=== PATIENT | female | born 1995 | race Caucasian/White ===

== ENCOUNTER → 2019-07-05 08:40 | Outpatient (BNVA) | payer OTHER, SELFPAY | PROVIDERS: Family Provider Nurse Practitioner; PCP Nurse Practitioner; Visit Provider Psychiatry & Neurology Psychiatry | DX: F41.1 Generalized anxiety disorder (principal); F43.12 Post-traumatic stress disorder, chronic; F33.0 Major depressive disorder, recurrent, mild | CPT/HCPCS: 99204 ==

== ENCOUNTER → 2019-08-09 13:46 | Outpatient (BNVA) | payer OTHER, SELFPAY | PROVIDERS: Family Provider Nurse Practitioner; PCP Nurse Practitioner; Visit Provider Psychiatry & Neurology Psychiatry | DX: F33.0 Major depressive disorder, recurrent, mild (principal); F43.12 Post-traumatic stress disorder, chronic; F41.1 Generalized anxiety disorder | CPT/HCPCS: 99213 ==

== ENCOUNTER → 2019-09-02 09:20 | Outpatient (BNVA) | payer OTHER, MEDICAID, SELFPAY | PROVIDERS: Family Provider Nurse Practitioner; PCP Nurse Practitioner; Visit Provider Specialist | DX: M79.7 Fibromyalgia (principal) | CPT/HCPCS: 20552 ==

== ENCOUNTER 2019-09-13 22:03 | Emergency (ER) | payer OTHER, MEDICAID, SELFPAY ==
[2019-09-13 22:09] VITALS: BP 117/78; PULSE 65; RESP 17; TEMP 36.3; O2SAT 99; BMI 26.7
--- NOTE | 2019-09-13 22:37 | W.ED.NAVMDI ---
HPI - Nausea/Vomiting/Diarrhea General: Chief complaint: Nausea/Vomiting/Diarrhea Stated complaint: 8 weeks preg/n/v Time Seen by Provider: 09/13/19 22:19 History of Present Illness: MD elicited complaint: nausea and vomiting Onset (ago): day(s) (2) Description of vomiting: food contents and watery Associated nausea: Yes Associated abdominal pain: No Location of pain: None Severity: similar to previous episodes Quality: cramping Relieving factors: none Associated symtoms: Reports nausea; Denies anxiety, change in vision, chest pain, dizziness, dysuria, headache(s) or palpitations Review of Systems Const: Denies: fever or chills Eyes: Denies: change in vision or blurry vision ENMT: Denies: painful swallowing, swelling of lips/tongue, post nasal drip or facial/sinus pain Card: Denies: chest pain, palpitations or edema Resp: Denies: shortness of breath, productive cough, non-productive cough or wheezing GI: Reports: nausea : Denies: painful urination, urinary frequency, urinary urgency or blood in urine Musc: Denies: neck pain, back pain, redness or joint warmth Skin/Breast: Denies: rash, itching or redness Neuro: Denies: headache, dizziness or vertigo Psych: Denies: anxiety PFSH ED PFSH: Social History Smoking and tobacco status: never smoked History of recent travel: No Female Reproductive History: Date of last menstrual period: 07/20/19 Physical Exam Const: GENERAL APPEARANCE: well developed ORIENTATION/CONSCIOUSNESS: Yes oriented to person, Yes oriented to place and Yes oriented to time HENMT: COMMON NORMALS: normocephalic, external ears normal and external nose normal HEAD & SCALP: normocephalic FACE & SINUS: normal facial exam NOSE: external nose normal and no nasal discharge EXTERNAL EAR: Yes external ears normal Eye: COMMON NORMALS: PERRL, EOMs intact bilaterally and conjunctivae normal EYELID: eyelids normal CONJUNCTIVA: Yes conjunctivae normal PUPIL: Yes PERRL Neck/C-Spine: COMMON NORMALS: full ROM GENERAL: No tracheal deviation Chest: COMMONS NORMALS: inspection of chest normal CHEST: No tenderness Resp: COMMON NORMALS: clear to auscultation bilaterally EFFORT & INSPECTION: No tachypneic, No respiratory distress, No retractions, No uses accessory muscles and No tracheal deviation AUSCULTATION: clear to auscultation bilaterally, no rhonchi, no wheezes and lung sounds not diminished Cardio: COMMON NORMALS: regular rate and regular rhythm RATE: regular rate RHYTHM: regular rhythm HEART SOUNDS: no murmurs PERIPHERAL PULSES: radial pulses present GI: INSPECTION: No abdominal distension AUSCULTATION: No hyperactive bowel sounds and No hypoactive bowel sounds PALPATION: No guarding and No rigid PERCUSSION: no dullness to percussion and no tympanic to percussion : COMMON NORMALS: Yes no CVA tenderness BLADDER/KIDNEY EXAM: Yes no CVA tenderness Back/Pelvis: COMMON NORMALS: no CVA tenderness Neuro: SENSORIUM/ORIENTATION: Yes oriented to person, Yes oriented to place and Yes oriented to time Psych: COMMON NORMALS: mental status grossly normal Skin: COMMON NORMALS: no rashes or lesions noted GENERAL SKIN EXAM: no rashes or lesions noted Course Vital Signs: Vital signs: Vital Signs Temperature 97.3 F L 09/13/19 22:09 Pulse Rate 66 09/14/19 00:19 Respiratory Rate 14 09/14/19 00:19 Blood Pressure 116/68 09/14/19 00:19 Pulse Oximetry 99 09/13/19 22:09 MDM - Nausea/Vomiting/Diarrhea MDM Narrative: Medical decision making narrative: 24-year-old female, who states that she is 8 weeks , complains of significant vomiting. No diarrhea, no fever, no real belly pain. She has had some mild cramping, no discharge or bleeding. She had hyperemesis with 2 prior pregnancies. She is a . She had promethazine at home, but without improvement. Zofran worked well for her here. I believe the risk is minimal. Her serum quant is appropriate for her dates. On bedside ultrasound, she has an intrauterine with good heart rate in the 160s. Fetus measures 7 weeks 4 days. Lab Data: Labs: Lab Results 09/13/19 09/13/19 09/14/19 Range/Units 22:42 22:42 00:33 WBC 13.2 H (4.0-10.0) 10^3/ uL RBC 5.18 (4.1-5.3) 10^6/u L Hgb 14.7 (11.5-15.3) g/dL Hct 44.8 (37.0-47.0) % MCV 86.5 (81-99) fL MCH 28.4 (28.0-34.0) pg MCHC 32.8 (30.0-36.0) g/dL RDW 12.3 (12.1-15.1) % Plt Count 252 (130-400) 10^3/c mm MPV 9.9 (7.4-10.4) fL Neut % (Auto) 82.5 % Lymph % (Auto) 12.1 % Wilkes % (Auto) 4.7 % Eos % (Auto) 0.2 % Baso % (Auto) 0.2 % Neut # (Auto) 10.9 H (1.8-7.7) 10^3/u L Lymph # (Auto) 1.6 (0.8-4.8) 10^3/u L Wilkes # (Auto) 0.6 (0.2-0.9) 10^3/u L Eos # (Auto) 0.0 (0.0-0.8) 10^3/u L Baso # (Auto) 0.0 (0.0-0.1) 10^3/u L Nucleated RBC % (a uto) 0 % Nucleated RBCs # 0.0 /100WBC Sodium 140 (136-145) mmol/L Potassium 3.7 (3.5-5.1) mmol/L Chloride 104 (98-107) mmol/L Carbon Dioxide 22 (22-29) mmol/L Anion Gap 17.7 (5-19) BUN 6 (6-20) mg/dL Creatinine 0.7 (0.5-0.9) mg/dL GFR Calculation 101.1 (90-130) mL/min Glucose 97 (65-115) mg/dL Calculated Osmolal ity 286 (285-295) mOsm/k g Calcium 10.2 (8.5-10.5) mg/dL Total Bilirubin 0.8 (0.15-1.2) mg/dL AST 31 (0-32) U/L ALT 37 H (0-33) U/L Alkaline Phosphata se 48 (35-105) IU/L Total Protein 8.2 (6.6-8.7) g/dL Albumin 4.9 (3.5-5.2) g/dL Globulin 3.3 (1.3-4.6) g/dL Ser , [place] i-Qnt 352712.00 mIU/mL Urine Color Dark yellow (Yellow) Urine Appearance Sl cloudy A (CLEAR) Urine pH 5 (5-7) Ur Specific Gravit y 1.025 (1.005-1.030) Urine Protein Trace (Negative) Urine Glucose (UA) Norm (Normal) Urine Ketones 2+ H (Negative) Urine Blood Trace H (Negative) Urine Nitrate Negative (Negative) Urine Bilirubin 1+ H (NEGATIVE) Urine Urobilinogen 4 H (Negative) mg/dL Ur Leukocyte Page ase Negative (Negative) Urine RBC 5-10 H (0-2) /hpf Urine WBC 0-4 H (0-5) /hpf Ur Squamous Epith Cells 10-15 H (0-5) Urine Bacteria 1+ H (NONE) Urine Mucus 3+ Discharge Plan Discharge Patient Disposition: Home, Self-Care Clinical Impression: Hyperemesis gravidarum Condition: Stable Prescriptions: New Zofran 4 mg tablet 4 mg PO Q6H PRN (Reason: nausea and vomiting) Qty: 14 RF: 0 No Action buspirone 10 mg tablet 10 mg PO TID Qty: 90 RF: 2 hydroxyzine HCl 25 mg tablet 25 mg PO TID PRN (Reason: anxiety/insomnia) Qty: 90 RF: 2 Discharge Orders: Discharge Order (Routine); Ordered 09/14/19 Ordered By: Edi Story Referrals: Leanne Jerry, ASSISTANT MANAGER-C [Family Provider] - You Grimaldo MD [Primary Care Provider] - 4-7 days Discharge Diet: Advance as tolerated Discharge Activity: Increase activity as tolerated Patient Instructions: Hyperemesis Gravidarum (ED) Activity Restrictions/Additional Instructions: Return for continued vomiting liquids despite treatment. Take the prescribed medication every 6 hours scheduled for the first 24 hours, then only as needed. Use the promethazine preferentially over the Zofran. Return also for fever, vaginal bleeding, belly pain, other concerning symptoms. Coding Level of Care Code ED Grain Oilseed Or Pasture Grower for Chg Fwd Exam Comprehensive
[2019-09-13] MEDS: sodium chloride 0.9% 1,000 ML 999 ML IV (23:13)
[2019-09-13] MEDS: ondansetron 2 mg/ML SDV 2 mL 4 MG IVP (23:13)
[2019-09-13] MEDS: metoclopramide 5 mg/mL SDV 2 mL 10 MG IVP (23:13)
[2019-09-13 23:14] LABS: Basophils % 0.2 %; Eosinophils % 0.2 %; Hematocrit 44.8 % (37.0-47.0); Hemoglobin 14.7 g/dL (11.5-15.3); Lymphocytes # 1.6 10^3/uL (0.8-4.8); Lymphocytes % 12.1 %; Mean Corpuscular HGB Conc 32.8 g/dL (30.0-36.0); Mean Corpuscular Hemoglobin 28.4 pg (28.0-34.0); Mean Corpuscular Volume 86.5 fL (81-99); Mean Platelet Volume 9.9 fL (7.4-10.4); Monocytes # 0.6 10^3/uL (0.2-0.9); Monocytes % 4.7 %; Neutrophils # 10.9 10^3/uL (1.8-7.7); Neutrophils % 82.5 %; Nucleated Red Blood Cells % 0 %; Platelet Count 252 10^3/cmm (130-400); Red Blood Count 5.18 10^6/uL (4.1-5.3); Red Cell Distribution Width 12.3 % (12.1-15.1); White Blood Count 13.2 10^3/uL (4.0-10.0)
[2019-09-13 23:46] LABS: Alanine Aminotransferase 37 U/L (0-33); Albumin Level 4.9 g/dL (3.5-5.2); Alkaline Phosphatase 48 IU/L (35-105); Anion Gap 17.7 (5-19); Aspartate Amino Transferase 31 U/L (0-32); Blood Urea Nitrogen 6 mg/dL (6-20); Calcium 10.2 mg/dL (8.5-10.5); Carbon Dioxide 22 mmol/L (22-29); Chloride 104 mmol/L (98-107); Globulin 3.3 g/dL (1.3-4.6); Glomerular Filtration Rate 101.1 mL/min (90-130); Glucose 97 mg/dL (65-115); Osmolality Calculated 286 mOsm/kg (285-295); Potassium 3.7 mmol/L (3.5-5.1); Sodium 140 mmol/L (136-145); Total Bilirubin 0.8 mg/dL (0.15-1.2); Total Protein 8.2 g/dL (6.6-8.7)
[2019-09-14 00:19] VITALS: BP 116/68; PULSE 66; RESP 14
[2019-09-14] MEDS: sodium chloride 0.9% 1,000 ML 999 ML IV (00:58)
[2019-09-14 01:40] LABS: Glucose Urine UA Norm (Normal); Ketones Urine 2+ (Negative); Nitrate Urine Negative (Negative); Protein Urine Trace (Negative); Specific Gravity, Urine 1.025 (1.005-1.030); Urine Color Dark Yellow (Yellow); pH Urine 5 (5-7)
[2019-09-14 01:41] LABS: Add Urine Culture? No; Add Urine Microscopic? YES; Bacteria Urine 1+; Bilirubin Urine 1+ (NEGATIVE); Blood Urine Trace (Negative); Leukocyte Esterase Urine Negative (Negative); Mucus Urine 3+; Urobilinogen Urine 4 mg/dL (Negative); WBC Urine 0-4 /hpf (0-5)
[2019-09-14 02:08] VITALS: BP 122/70; PULSE 78; RESP 16; O2SAT 99
[2019-09-14 02:13] LABS: Lipase 25 U/L (13-60)
== END 2019-09-14 02:11 | disposition home or self-care (01) ==
PROVIDERS: Emergency Provider Emergency Medicine; Family Provider Nurse Practitioner; PCP Family Medicine
DX: O21.0 Mild hyperemesis gravidarum (principal); Z3A.01 Less than 8 weeks gestation of pregnancy
CPT/HCPCS: 12345; 80053; 81001; 83690; 84702; 85025; 96360; 96361; 96374; 96375; 99283; 99284; J2405; J2765; J7030

== ENCOUNTER → 2019-10-18 08:53 | Outpatient (BNVA) | payer OTHER, SELFPAY | PROVIDERS: Family Provider Nurse Practitioner; PCP Family Medicine; Visit Provider Psychiatry & Neurology Psychiatry | DX: F33.0 Major depressive disorder, recurrent, mild (principal); F43.12 Post-traumatic stress disorder, chronic; F41.1 Generalized anxiety disorder | CPT/HCPCS: 99213 ==

== ENCOUNTER 2020-04-06 20:14 | Outpatient (CLI) | payer OTHER, MEDICAID, SELFPAY ==
[2020-04-06 20:19] VITALS: BP 119/67; PULSE 66; RESP 18; TEMP 36.3
[2020-04-06 20:29] VITALS: BP 119/67; PULSE 66
[2020-04-06 22:42] VITALS: RESP 18; TEMP 36.7
[2020-04-06 22:43] VITALS: BP 106/60; PULSE 62
[2020-04-07 00:06] VITALS: BP 106/61; PULSE 61; RESP 18; TEMP 36.5
== END 2020-04-07 00:12 | disposition home or self-care (01) ==
LOC: OPOB 20:15 → OBGYN 20:16
PROVIDERS: Family Provider Nurse Practitioner; PCP Family Medicine; Visit Provider Family Medicine
DX: O26.899 Other specified pregnancy related conditions, unspecified trimester (principal); Z3A.00 Weeks of gestation of pregnancy not specified; R10.9 Unspecified abdominal pain
CPT/HCPCS: 59025; 99211

== ENCOUNTER 2020-04-17 21:15 | Inpatient (IN) | payer OTHER, MEDICAID, SELFPAY ==
[2020-04-17] VITALS (21 sets, daily range): BP systolic 0–130; BP diastolic 0–73; PULSE 53–78; TEMP 36.6; O2SAT 98–99; BMI 30.9
[2020-04-17 22:55] LABS: Basophils % 0.3 %; Eosinophils # 0.1 10^3/uL (0.0-0.8); Eosinophils % 0.5 %; Hematocrit 33.7 % (37.0-47.0); Hemoglobin 11.1 g/dL (11.5-15.3); Lymphocytes # 2.4 10^3/uL (0.8-4.8); Mean Corpuscular HGB Conc 32.9 g/dL (30.0-36.0); Mean Corpuscular Volume 84.9 fL (81-99); Mean Platelet Volume 11.2 fL (7.4-10.4); Monocytes % 6.6 %; Neutrophils # 11.54 10^3/uL (1.8-7.7); Neutrophils % 76.1 %; Nucleated Red Blood Cells % 0 %; Platelet Count 204 10^3/cmm (130-400); Red Blood Count 3.97 10^6/uL (4.1-5.3); Red Cell Distribution Width 13.1 % (12.1-15.1); White Blood Count 15.2 10^3/uL (4.0-10.0)
--- NOTE | 2020-04-17 23:00 | P.ANESASSM_ITS ---
Pre-Anesthetic Assessment Pre-Anesthetic Assessment: Height/Weight: Height 1.73 m Pulse BP Pulse Ox 64 110/57 99 04/17/20 23:18 04/17/20 23:18 04/17/20 23:18 Preop Diagnosis: IUP Proposed Procedure: epdiural Familial anesthetic complications: None Last intake: NPO >8 8hrs Social: Social History: No alcohol and No tobacco Exam: Pre-Anes Outpt Exam: alert, oriented x 3, clear to auscultation bilaterally and regular rate & rhythm Airway: Cervical ROM: WNL MP: 2 Dentition: Full Anesthetic Plan: ASA status: 2 Anesthesia: Regional (specify below) (epidural) Risk of > 500 ml blood loss (7ml/kg in children): Yes, adequate IV access and fluids planned PFSH Anesthesia PFSH: Medical History (Updated 09/22/19 @ 00:00 by ) Recent childbirth 3 natural births Surgical History History of cholecystectomy Family History Grandmother Breast cancer Paternal grandmother Ovarian cancer Paternal grandmother Mother Diabetes Hypertension Family history of thyroid problem Grandfather Heart disease Paternal grandfather Maternal grandfather Other Parkinson disease Social History Smoking and tobacco status: never smoked Alcohol intake: never History of recent travel: No Female Reproductive History: Date of last menstrual period: 07/20/19 Data Anesthesia CBC & Chem 7: 04/17/20 21:45 Other Labs: Laboratory Results - last 48 hr 04/17/20 21:45 WBC 15.2 H RBC 3.97 L Hgb 11.1 L Hct 33.7 L MCV 84.9 MCH 28.0 MCHC 32.9 RDW 13.1 Plt Count 204 MPV 11.2 H Neut % (Auto) 76.1 Lymph % (Auto) 16.0 Frederick % (Auto) 6.6 Eos % (Auto) 0.5 Baso % (Auto) 0.3 Neut # (Auto) 11.54 H Lymph # (Auto) 2.4 Frederick # (Auto) 1.0 H Eos # (Auto) 0.1 Baso # (Auto) 0.0 Nucleated RBC % (auto) 0 Nucleated RBCs # 0.0 Cardiac Studies: No Data to Display
--- NOTE | 2020-04-17 23:22 | ANES.PROC ---
Anesthesia Procedures Procedure/Date: 04/17/20 Epidural: Time Out Performed: Yes Consents Signed: Procedure Consent, NPO Consent and No Consent Needed Lumbar Level: L3-L4 Epidural position: laying on side Epidural procedure: sterile prep of area, 1% lidocaine to numb the area, 18 g needle, negative for paresthesia passed, neg for paresthesia, test dose given, 1.5% xylocaine 1:200k epi (3), 0.2% Ropivacaine bolus ml, placed PCEA, no systemic response, sterile dressing applied, L.U.D. no apparent complications and 0.2% Ropiavacaine @ mls/hr (13) Additional Comments: MARCIA 7 cm threaded to 12 cm
[2020-04-18] VITALS (32 sets, daily range): BP systolic 0–120; BP diastolic 0–77; PULSE 50–76; RESP 14–16; TEMP 36.6–37; O2SAT 97–99
--- NOTE | 2020-04-18 02:38 | P.PCNOB_ITS ---
Delivery Note: Date of delivery: April 18, 2020 Pre-delivery diagnoses: 24-year-old 5 presenting in active labor Post-delivery diagnoses: Status post spontaneous vaginal delivery Op report anesthesia: Epidural Delivering Physician: You Grimaldo Estimated blood loss (mL): 150 Delivery: DELIVERY: The patient progressed to complete without difficulty. She delivered a female with a weight of 7 pounds 11 ounces with Apgars of 9, 9. The baby was delivered from the TATYANA position. The baby's mouth and nose were suctioned at the site of the perineum. The baby was then completely delivered and placed on the mother's abdomen. The cord was then clamped and cut. There was no nuchal cord. There was no meconium. The placenta and 3 vessel cord were delivered intact shortly thereafter. The perineum and vaginal vault were carefully examined. No lacerations were noted. Both the mother and the baby were in stable condition. Post-Delivery Status: Good A&P Assessment and plan (1) 39 weeks gestation of : Anticipate routine care Status: Acute (2) Spontaneous vaginal delivery: Status: Acute Coding Level of Care Code Acute Operating Room Specialist for Chg Fwd Diagnoses 39 weeks gestation of Z3A.39 Spontaneous vaginal delivery O80
[2020-04-18] MEDS: lanolin oint 7 gm 1 APPLIC TOPICAL (05:56)
[2020-04-18] MEDS: benzocaine-menthol 78 gm Canister 1 SPRAY TOPICAL (05:56)
[2020-04-18] MEDS: oxytocin 30 UNIT/500 ML BAG 600 UNIT IV (06:03)
[2020-04-18] MEDS: docusate sodium 100 mg Capsule PO ×2 (08:11→17:44)
[2020-04-18] MEDS: prenatal vitamin Capsule 1 CAP PO (08:11)
[2020-04-18] MEDS: ibuprofen 800 mg tablet PO ×3 (08:11→20:11)
[2020-04-18 14:10] LABS: Hematocrit 31.4 % (37.0-47.0); Hemoglobin 10.1 g/dL (11.5-15.3); Mean Corpuscular HGB Conc 32.2 g/dL (30.0-36.0); Mean Corpuscular Hemoglobin 27.7 pg (28.0-34.0); Mean Corpuscular Volume 86.3 fL (81-99); Mean Platelet Volume 11.1 fL (7.4-10.4); Platelet Count 176 10^3/cmm (130-400); Red Blood Count 3.64 10^6/uL (4.1-5.3); Red Cell Distribution Width 13.2 % (12.1-15.1); White Blood Count 16.2 10^3/uL (4.0-10.0)
[2020-04-19 04:26] VITALS: BP 92/52; PULSE 70; RESP 16; O2SAT 98
[2020-04-19] MEDS: prenatal vitamin Capsule 1 CAP PO (08:10)
[2020-04-19] MEDS: ibuprofen 800 mg tablet PO (08:10)
[2020-04-19] MEDS: docusate sodium 100 mg Capsule PO (08:10)
--- NOTE | 2020-04-19 09:15 | PM.OBGYDC ---
Discharge Providers CANE FLUME WATCHMAN Date of Admission: 04/17/20 21:15 Date of Discharge: 04/19/20 Attending Provider at Admission: You Grimaldo MD Attending Provider at Discharge: You Grimaldo MD Primary Care Provider: You Grimaldo MD Diagnoses at Discharge Discharge Diagnosis (1) 39 weeks gestation of : Status: Acute (2) Spontaneous vaginal delivery: Status: Acute Reason for Visit Reason for Visit: contractions Hospital Course Hospital Course: The patient presented to the hospital in active labor. An amniotomy was performed. An epidural was received. She had unremarkable vaginal delivery. Her course was notable for having some initial issues with bleeding that resolved within a couple of hours. She has breast-fed well. Her bleeding has been within normal limits. Her pain is a well controlled. There have been no concerns. Information Peripartum Data: Delivery Method: Vaginal Physical Exam Narrative: EXAM NARRATIVE: The patient is alert. She appears comfortable. Her heart has a regular rate and rhythm with no murmurs appreciated. Lungs are clear to auscultation bilaterally. Her fundus is firm and below the umbilicus. Discharge Data Data Completed and Pending: Labs from last 24 hours 04/18/20 14:00 WBC 16.2 H RBC 3.64 L Hgb 10.1 L Hct 31.4 L MCV 86.3 MCH 27.7 L MCHC 32.2 RDW 13.2 Plt Count 176 MPV 11.1 H Vitals: Last Vital Signs Temp 98.6 F 04/18/20 22:00 Pulse 70 04/19/20 04:26 Resp 16 04/19/20 04:26 BP 92/52 04/19/20 04:26 Pulse Ox 98 04/19/20 04:26 Discharge Plan Discharge Patient Disposition: Home Condition: Stable Prescriptions: New ibuprofen 800 mg Tablet 800 mg PO TID Qty: 30 RF: 0 Continued Classic 28 mg iron- 800 mcg tablet 1 tab PO DAILY RF: 0 Discharge Orders: Discharge Order (Routine); Ordered 04/19/20 Ordered By: You Grimaldo Referrals: You Grimaldo MD [Primary Care Provider] - 6 Weeks Discharge Diet: Usual diet Discharge Activity: Limit activity as instructed Discharge Attestations CANE FLUME WATCHMAN Time Spent in Discharge Care*: less than 30 min Coding Level of Care Code Acute Global Expansion Sales Director for Chg Fwd Diagnoses 39 weeks gestation of Z3A.39 Spontaneous vaginal delivery O80
[2020-04-19] MEDS: measles,mumps,rubella pf Vial (w/diluent) 0.5 ML SUBCUT (10:02)
[2020-04-19 10:15] VITALS: BP 109/67; PULSE 70; RESP 16; TEMP 36.7; O2SAT 98
== END 2020-04-19 10:20 | disposition home or self-care (01) | DRG 807 ==
LOC: OPOB 21:24 → OBGYN 21:25 → OPOB 21:48 → OBGYN 21:48
PROVIDERS: Admitting Provider Family Medicine; Family Provider Nurse Practitioner; PCP Family Medicine; Visit Provider Family Medicine
DX: O62.3 Precipitate labor (principal); Z37.0 Single live birth; Z3A.39 39 weeks gestation of pregnancy
CPT/HCPCS: 12345; 36415; 51702; 59409; 85025; 85027; 90707; 96372; 99211; J2795

== ENCOUNTER 2020-04-20 16:20 | Day surgery (SDC) | payer OTHER, MEDICAID, SELFPAY ==
[2020-04-20] VITALS (7 sets, daily range): BP systolic 110–129; BP diastolic 68–88; PULSE 50–62; RESP 16–20; TEMP 36.4–37.1; O2SAT 96–99
[2020-04-20] MEDS: sodium chloride 0.9% 1,000 ML 30 ML IV (16:53)
--- NOTE | 2020-04-20 17:06 | ANES.PREANE2 ---
Pre-Anesthetic Assessment Pre-Anesthetic Assessment: Height/Weight: Height 1.73 m Weight 85.729 kg Temp Pulse Resp BP Pulse Ox 97.6 F 57 L 18 129/72 99 04/20/20 16:46 04/20/20 16:46 04/20/20 16:46 04/20/20 16:46 04/20/20 16:46 Preop Diagnosis: IUP Proposed Procedure: Operation Date: 04/20/20 17:00 Proposed Procedures p Bilateral Tubal Ligation(Bilateral) - You Grimaldo MD Was Beta Hesham taken within 24 hours: N/A Last intake: Intake Last Liquid Date 04/20/20 Last Liquid Time 09:00 Last Solid Date 04/20/20 Last Solid Time 07:00 Social: Social History: No alcohol and No tobacco Exam: Pre-Anes Outpt Exam: alert, oriented x 3, clear to auscultation bilaterally and regular rate & rhythm Airway: Submandibular: WNL Cervical ROM: WNL MP: 2 Dentition: Full History/ROS: No significant history except as noted and No significant complaints Pulmonary: Pulmonary: None reported CV/HEM: CV/HEM: None reported : : None reported Hepatic: Hepatic: None reported GI: GI: None reported Metabolic: Metabolic: None reported Musc/skel: Musc/skel: None reported Neuropsych: Neuropsych: None reported Anesthetic Plan: ASA status: 1 Anesthesia: Anesthesia Evaluation and General Risk of > 500 ml blood loss (7ml/kg in children): No Meds/Allergies Current Medications: Current Medications Generic Name Dose Route Start Last Admin Trade Name Freq PRN Reason Stop Dose Admin Sodium Chloride 1,000 mls @ 30 ml s/hr 04/20/20 16:30 04/20/20 16:53 Sodium Chloride 0.9% IV 04/21/20 16:29 30 mls/hr .Q24H ELISSA Administration PFSH Anesthesia PFSH: Medical History (Updated 04/20/20 @ 00:00 by ) Recent childbirth 3 natural births Surgical History History of cholecystectomy Family History Grandmother Breast cancer Paternal grandmother Ovarian cancer Paternal grandmother Mother Diabetes Hypertension Family history of thyroid problem Grandfather Heart disease Paternal grandfather Maternal grandfather Other Parkinson disease Social History Smoking and tobacco status: never smoked Alcohol intake: never History of recent travel: No Female Reproductive History: Date of last menstrual period: 07/20/19 Data Anesthesia Cardiac Studies: No Data to Display
--- NOTE | 2020-04-20 17:34 | PM.OPSURHP ---
Providers/Chief Complaint Primary Care Provider: You Grimaldo MD History of Present Illness Mirna Amezcua is a 24 year old female who presents for a minilaparotomy tubal ligation. Because of her Covid status we are unable to do it during her hospital stay. As result of her having it done as an outpatient basis today. She delivered her baby 2 days ago. We discussed the risks of the procedure including the risks of bleeding, infection, and damage intra-abdominal organs. She also understands there is a 1 and 200 chance of becoming again despite a successful tubal ligation. She has no further questions and wishes to proceed. Review of Systems General: Reports: 10 or more systems reviewed and unremarkable except in HPI and below Const: Reports: fatigue; Denies: fever(s) Eyes: Denies: change in vision Card: Denies: chest pain Musc: Reports: back pain Dwight/Lymph: Denies: easy bruising Medications/Allergies Home Medications Medication Instructions Recorded Confirmed Last Taken Type vits no.126-ferrous fum 1 tab PO DAILY tab 10/17/19 04/20/20 04/20/20 History 28 mg iron-folic acid 800 mcg tablet ibuprofen 800 mg PO TID #30 tab 04/19/20 04/20/20 04/20/20 Rx Allergies Allergy/AdvReac Type Severity Reaction Status Date / Time bupropion [From Wellbutrin] Allergy Intermediate ALGY-Rash Verified 04/20/20 16:28 erythromycin base Allergy Intermediate ALGY-Rash Verified 04/20/20 16:28 PFSH PFSH: Medical History (Updated 04/20/20 @ 17:37 by You Grimaldo MD) Recent childbirth 3 natural births Surgical History (Updated 04/20/20 @ 17:37 by You Grimaldo MD) History of cholecystectomy Family History Grandmother Breast cancer Paternal grandmother Ovarian cancer Paternal grandmother Mother Diabetes Hypertension Family history of thyroid problem Grandfather Heart disease Paternal grandfather Maternal grandfather Other Parkinson disease Social History Smoking and tobacco status: never smoked Alcohol intake: never History of recent travel: No Female Reproductive History: Date of last menstrual period: 07/20/19 Vital Signs Vitals Signs: Last Vital Signs Temp 97.6 F 04/20/20 16:46 Pulse 57 L 04/20/20 16:46 Resp 18 04/20/20 16:46 BP 129/72 04/20/20 16:46 Pulse Ox 99 04/20/20 16:46 Weight: Weight last 48 hrs Weight 189 lb Physical Exam Const: COMMON NORMALS: no acute distress and patient oriented x3 GENERAL APPEARANCE: cooperative, comfortable and well developed HENMT: COMMON NORMALS: normocephalic and moist oral mucous membranes HEAD & SCALP: normocephalic Chest: COMMONS NORMALS: normal inspection of the chest Resp: COMMON NORMALS: normal respiratory effort and clear to auscultation bilaterally AUSCULTATION: clear to auscultation bilaterally Cardio: COMMON NORMALS: regular rate, regular rhythm, No gallops present (Cardio), No murmurs present (Cardio) and No rub (Cardio) RATE: regular rate RHYTHM: regular rhythm : COMMON NORMALS: Yes no CVA tenderness, Yes normal external appearance, Yes normal appearance of the vagina, Yes normal appearance of the cervix, Yes No adnexal tenderness and Yes no masses Extremity: COMMON NORMALS: normal to inspection Neuro: COMMON NORMALS: patient oriented x3 and no focal motor deficits Skin: COMMON NORMALS: no rashes or lesions noted GENERAL SKIN EXAM: no rashes or lesions noted A&P Assessment and plan (1) Sterilization consult: Proceed with tube ligation as planned. Status: Acute (2) Status post vaginal delivery: Status: Acute Coding Level of Care Code Acute Auto Design Checker for Chg Fwd Diagnoses Sterilization consult Z30. Status post vaginal delivery
--- NOTE | 2020-04-20 18:17 | P.OP_ITS ---
Operative Report Date of procedure: April 20, 2020 Pre-op Diagnosis: female, desires sterilization Post-op diagnosis: same Procedure Done: minilaparotomy bilateral tubal ligation using a modified John technique Specimens removed/disposition: Bilateral fallopian tube segments with the right segment being tagged Pathology: other Pathology: Bilateral fallopian tube segments with the right segment being tagged Surgeon: You Grimaldo Anesthesia: General Estimated blood loss (mL): 10 Complications: None Condition: stable Disposition: PACU Brief History: Refer to history and physical Procedure: The patient was brought back to the operating room where anesthesia was found to be adequate. 10 mL of 0.5% bupivacaine was then used to pre- anesthetize the area just inferior to the umbilicus. A #15 blade was then used to make a 3 cm transverse incision just inferior to the umbilicus. I then dissected down to the underlying subcutaneous tissue until arriving at the fascia. The fascia was then nicked with the scalpel. The fascial incision was extended manually. I identified the fundus of the uterus and followed it to the left fallopian tube. The fallopian tube was then followed to the fimbria. The tube was then ligated, cut, and cauterized in a modified John fashion using 0 chromic. The right fallopian tube was then identified and followed through to the fimbria. It was ligated, cut, and cauterized in similar fashion. The right fallopian tube was tagged. Both fallopian tubes had excellent hemostasis. The fascia was reapproximated using 0 Vicryl in running stitch. The subcutaneous tissue was carefully examined and no further bleeding was noted. The skin was then reapproximated using 4-0 Vicryl in a running subcuticular stitch. A sterile dressing was placed. All counts were correct x2. The p atient was moved to the recovery room in stable condition.
--- NOTE | 2020-04-20 18:23 | ANE.PACU2 ---
Inpatient post-anesthesia follow up: Airway intact: Yes Vital signs: Temperature 98.7 F Pulse Rate 62 Respiratory Rate 18 Blood Pressure 122/80 Pulse Oximetry 98 Oxygen Delivery Me thod Room Air Oxygen Flow Rate Fraction of Inspir ed Oxygen Hydration adequate: Yes Nausea and vomiting: No Pain level: 2 Mental status: Baseline
[2020-04-20] MEDS: HYDROcodone-acetaminophen 5-325 mg Tablet 1 TAB PO (19:13)
== END 2020-04-20 19:21 | disposition home or self-care (01) ==
PROVIDERS: Family Provider Nurse Practitioner; PCP Family Medicine; Visit Provider Family Medicine
PROC: (CPT 58605; principal; 2020-04-20 17:00)
DX: Z30.2 Encounter for sterilization (principal)
CPT/HCPCS: 58600; 12345; 88302; J1100; J1885; J2405; J2704; J2710; J3010; J3490; J7030

== ENCOUNTER 2020-09-01 08:24 | Emergency (ER) | payer OTHER, SELFPAY ==
[2020-09-01 08:34] VITALS: BP 123/68; PULSE 73; RESP 18; O2SAT 100; BMI 27.3
--- NOTE | 2020-09-01 08:58 | W.ED.BACK ---
HPI - Back Pain/Injury General: Chief Complaint: Back Pain/Injury Stated Complaint: BACK PAIN Time Seen by Provider: 09/01/20 08:25 Source: patient Mode of arrival: ambulatory Limitations: no limitations History of Present Illness: HPI Narrative: Pleasant 25-year-old female patient presents to the emergency department with acute onset of low back pain. She reports was sitting in the floor this morning with her daughter, legs crossed when she bent over and lifted her daughter. She reports intense pain in her lower back, states pain radiated down her legs. She reports difficulty getting up due to pain. States was able to ambulate up and down stairs to come to the ED. She reports took hydrocodone for pain prior to arrival and pain is better. She reports history of chronic back pain that occurs intermittently, denies bowel or bladder incontinence. Reports previous history of use of muscle relaxers that helps with back pain, she is requesting MRI of the lower spine due to chronic intermittent symptoms. MD elicited complaint: back pain and back injury Pertinent past history: prior back pain Timing: intermittent Severity: moderate Similar Symptoms Previously: Yes Quality: sharp, stabbing, spasming and throbbing Location: lumbar spine Radiation: left upper leg and right upper leg Exacerbating factors: movement and lifting Relieving factors: immobilization Context: while lifting, turning/twisting and bending Associated symptoms: Reports no associated symptoms; Deny abdominal pain, chills, dysuria, fatigue, fever(s), nausea or vomiting Treatments prior to arrival: prescription analgesics Work related injury: No Review of Systems General: Reports: 10 or more systems reviewed and unremarkable except in HPI and below Const: Denies: fever(s), chills, body aches, fatigue, malaise or diaphoresis Eyes: Denies: blurry vision or eye redness ENMT: Denies: throat pain, dental pain or disequilibrium Card: Denies: chest pain, palpitations or irregular heart rhythm Resp: Denies: dyspnea, productive cough, non-productive cough or wheezing GI: Denies: abdominal pain, nausea, vomiting or dysphagia : Denies: difficulty voiding or dysuria Musc: Reports: back pain; Denies: neck pain, joint pain or joint warmth Skin/Breast: Denies: rash or pruritus Neuro: Denies: headache(s), weakness in extremities or behavioral changes Psych: Denies: anxiety, depression or change in appetite Dwight/Lymph: Denies: easy bruising PFSH ED PFSH: Medical History Recent childbirth 3 natural births Surgical History History of cholecystectomy Family History Grandmother Breast cancer Paternal grandmother Ovarian cancer Paternal grandmother Mother Diabetes Hypertension Family history of thyroid problem Grandfather Heart disease Paternal grandfather Maternal grandfather Other Parkinson disease Social History Smoking and tobacco status: never smoked Alcohol intake: never History of recent travel: No Female Reproductive History: Date of last menstrual period: 07/20/19 Physical Exam Const: COMMON NORMALS: no acute distress, patient oriented x3, healthy appearing and alert GENERAL APPEARANCE: cooperative, comfortable and well hydrated HENMT: COMMON NORMALS: normocephalic, Normal external nose present and moist oral mucous membranes HEAD & SCALP: normocephalic NOSE: Normal external nose present Eye: COMMON NORMALS: Equal, round and reactive pupils present and EOMs intact bilaterally GENERAL EYE: appearance normal, both eyes and all related structures PUPIL: Yes Equal, round and reactive pupils present Neck/C-Spine: COMMON NORMALS: full ROM and no lymphadenopathy GENERAL: Yes normal visual inspection and Yes trachea midline CERVICAL SPINE: Yes cervical ROM normal Lymph: LYMPHATIC: no lymphadenopathy noted Chest: COMMONS NORMALS: normal inspection of the chest Resp: COMMON NORMALS: normal respiratory effort and clear to auscultation bilaterally AUSCULTATION: clear to auscultation bilaterally Cardio: COMMON NORMALS: regular rhythm, S1 normal heart sound present and S2 normal heart sound present RHYTHM: regular rhythm HEART SOUNDS: S1 normal heart sound present and S2 normal heart sound present GI: COMMON NORMALS: Soft to palpation and non-tender INSPECTION: Yes normal to inspection PALPATION: Yes Soft to palpation : COMMON NORMALS: Yes no CVA tenderness BLADDER/KIDNEY EXAM: Yes no CVA tenderness and Yes CVA tenderness Back/Pelvis: COMMON NORMALS: no CVA tenderness and thoracic and lumbar spine normal to inspection GENERAL BACK: Yes CVA tenderness THORACIC SPINE/UPPER BACK: Yes normal to inspection, Yes thoracic ROM normal, No thoracic spinal tenderness, No paraspinal muscle tenderness and No paraspinal muscle spasm LUMBAR SPINE/LOWER BACK: Yes normal to inspection, Yes ROM limited, Yes pain with ROM, Yes lumbar spinal tenderness Lumbar spinal tenderness location: L3, L4 and L5, Yes paraspinal muscle tenderness Lumbar paraspinal muscle tenderness: bilateral, Yes paraspinal muscle spasm Lumbar paraspinal muscle spasm: bilateral and Yes straight leg raise positive left PELVIS: Yes buttocks normal SACROILIAC JOINTS: Yes SI joints normal Extremity: COMMON NORMALS: normal to inspection, full ROM, capillary refill normal and no pedal edema GENERAL: Yes normal exam except as noted Neuro: COMMON NORMALS: patient oriented x3 and no focal motor deficits SENSORIUM/ORIENTATION: Yes alert SPEECH: speech normal MONOFILAMENT EXAM PERFORMED: Yes Monofilament Exam (small fiber function): L great toe: normal, L 3rd toe: normal, L 5th toe: normal, R 1st metatarsals: normal, R 3rd metatarsals: normal and R 5th metatarsals: normal MOTOR EXAM: 5/5 motor strength present throughout Psych: COMMON NORMALS: mental status grossly normal, Normal thought process present, cooperative, normal affect, speech normal and activity/motor behavior normal ACTIVITY/MOTOR BEHAVIOR: Yes appropriate eye contact SPEECH: Yes normal speech THOUGHT PROCESS: Normal thought process present Skin: COMMON NORMALS: no rashes or lesions noted and turgor normal GENERAL SKIN EXAM: no rashes or lesions noted and turgor normal Course Vital Signs: Vital signs: Vital Signs Pulse Rate 73 09/01/20 08:34 Respiratory Rate 18 09/01/20 08:34 Blood Pressure 123/68 09/01/20 08:34 Pulse Oximetry 100 09/01/20 08:34 MDM - Back Pain/Injury MDM Narrative: Medical decision making narrative: 25-year-old female patient presents to the emergency department with acute onset of low back pain after bending to lift her daughter. She reports previous episodes of low back pain in the past. She did not exhibit cauda equina symptoms or urgent imaging needs. She did request MRI of her lower back as she continues to exhibit repetitive low back pain episodes. MRI outpatient order completed with follow-up through social media content manager. Patient was advised to return to the emergency department if she developed weakness/inability to feel her bilateral lower extremities or other concerning symptoms. Advised to follow-up with her primary care, Dr. Grimaldo within 7 days if not improved and to avoid positioning that would worsen/exacerbate low back pain. Discharge Plan Discharge Patient Disposition: Home Clinical Impression: Acute lumbar myofascial strain Qualifiers: Encounter type: initial encounter Qualified Code(s): S39.012A - Strain of muscle, fascia and tendon of lower back, initial encounter Low back pain Qualifiers: Chronicity: acute Back pain laterality: bilateral Sciatica presence: without sciatica Qualified Code(s): M54.5 - Low back pain Condition: Stable Prescriptions: New cyclobenzaprine 10 mg tablet 5 mg PO TID PRN (Reason: muscle spasm) Qty: 30 RF: 0 Discontinued ibuprofen 800 mg Tablet 800 mg PO TID Qty: 30 RF: 0 No Action Classic 28 mg iron- 800 mcg tablet 1 tab PO DAILY RF: 0 hydrocodone-acetaminophen 5-325 mg tablet 1 tab PO Q6H PRN (Reason: pain) Qty: 20 RF: 0 Discharge Orders: Discharge ED (Routine); Ordered 09/01/20 Ordered By: Barbie Walker Referrals: You Grimaldo MD [Primary Care Provider] - Discharge Diet: Usual diet Discharge Activity: Limit activity as instructed Patient Instructions: Low Back Strain (ED), Core Strengthening Exercises (GEN), Opioid Safety Activity Restrictions/Additional Instructions: Return to the emergency department immediately if you develop bladder or urinary incontinence, weakness of the bilateral lower extremities, inability to feel your legs Outpatient MRI order of the low back ordered as requested, social media content manager will be contacting you with time and date, results will be sent to Dr. Grimaldo No twisting bending or lifting greater than 5 pounds until better Follow-up with Dr. Grimaldo in 7 days if not improved May apply Salonpas, roll-on lidocaine gel to the affected area as needed for pain as directed on the back of bottle Ice packs to the lower back to help with pain May take Tylenol, 1 g 3 times daily as needed for pain Coding Level of Care Code ED Patient Care Provider for [facility] Exam Comprehensive
[2020-09-01] MEDS: cyclobenzaprine 10 mg Tablet PO (09:05)
[2020-09-01] MEDS: ibuprofen 600 mg Tablet PO (09:06)
[2020-09-01 09:18] VITALS: BP 112/63; PULSE 61; RESP 16; O2SAT 98
--- NOTE | 2020-09-01 11:00 | DCPLANNER ---
channel account manager had message to schedule an outpatient MRI for patient. channel account manager faxed signed order to centralized scheduling, will call for appointment information.
--- NOTE | 2020-09-18 08:17 | DCPLANNER ---
Patient has an outpatient MRI schedule for Monday, September 28, 2020 at 9:30.
--- NOTE | 2020-10-01 15:54 | DCPLANNER ---
manager document was asked to speak with primary care physician to see if he would order an MRI for patient and to ask about a follow up appointment. manager document spoke with Dr. Grimaldo nurse, she stated that Dr. Grimaldo has ordered the MRI and patient is waiting to schedule a follow up appointment until after the MRI is scheduled.
--- NOTE | 2020-10-06 15:18 | DCPLANNER ---
Patient had an out patient MRI scheduled for 09.28.20 - patient did attend the appointment.
== END 2020-09-01 09:19 | disposition home or self-care (01) ==
PROVIDERS: Emergency Provider Nurse Practitioner Family; PCP Family Medicine
DX: S39.012A Strain of muscle, fascia and tendon of lower back, initial encounter (principal); X50.0XXA Overexertion from strenuous movement or load, initial encounter
CPT/HCPCS: 99283

== ENCOUNTER 2020-09-28 09:17 | Outpatient (CLI) | payer OTHER, SELFPAY ==
--- NOTE | 2020-09-28 09:47 | MR_ITS ---
WS: [id number] MRI LUMBAR SPINE NONCONTRAST HISTORY: BACK PAIN/LUMBAR COMPARISON: None available. TECHNIQUE: Sagittal and axial multisequence imaging is submitted. Normal cervical and thoracic alignment. Increased T2 signal in the central thoracic cord consistent w ith a syrinx. Syrinx begins at the T2-3 level and extends over length of 5 cm. Additional syrinx at T 7-8 through T9-10. Indeterminate for syrinx in the midthoracic cord. Normal lumbar alignment with no compression fractures or marrow edema. Disc spaces are mildly desiccated L2-3 to L5-S1. Conus terminates normally at L1-2 disc level. L1-L2: Normal. L2-L3: Small amount of fluid in the facet joints. No stenosis. Central disc herniation is minimal wit h annular fissure. L3-L4: No disc protrusions or stenosis. Small amount of fluid in the facet joints. L4-L5: Mild annular disc bulging with central disc protrusion causing mild encroachment upon the vent ral thecal sac. No significant stenosis. L5-S1: Mild annular disc bulge with a central disc protrusion and annular fissure. No stenosis. MR/MR lumbar spine wo con* [id number] IMPRESSION: 1. No significant lumbar stenosis. 2. Central disc protrusions with annular fissures at L2-3, L4-5 and L5-S1. 3. 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 Recommend dedicated MRI thoracic s pine with and without contrast for further characterization.
== END 2020-09-28 09:18 | disposition home or self-care (01) ==
PROVIDERS: PCP Family Medicine; Visit Provider Nurse Practitioner Family
DX: M54.16 Radiculopathy, lumbar region (principal); M51.26 Other intervertebral disc displacement, lumbar region; M51.27 Other intervertebral disc displacement, lumbosacral region
CPT/HCPCS: 72148

== ENCOUNTER 2020-10-23 09:13 | Outpatient (CLI) | payer OTHER, SELFPAY ==
--- NOTE | 2020-10-23 09:17 | MR_ITS ---
WS: [id number] MRI THORACIC SPINE with and without contrast HISTORY: SYRINX OF SPINAL CORD COMPARISON: MRI lumbar spine 09/28/2020. TECHNIQUE: Multiplanar sequences are performed in sagittal and axial planes. Postcontrast imaging sub mitted. Very mild RIGHT curvature thoracic spine. Posterior vertebral bodies are normally aligned. No marrow edema or enhancing masses within the vertebral bodies. Increased T2 signal within the central cervica l cord begins at the T3 level and extends to the T4-5 disc space. Increased T2 signal in the central cord is again identified beginning at the T6 level through the mid T10 level. No enhancing masses are identified throughout the cord. Syrinx is small caliber measuring only 2 mm at its maximum. No central or foraminal stenosis. No disc protrusions. The paravertebral soft tissues are normal. MR/MR thoracic spine wo/w [id number] IMPRESSION: 1. Thoracic cord syrinx with a maximum diameter of 2 mm and no enhancement. Sy rinx begins at T3 and extends to the T4-5 disc space. Additional syrinx begins at T6-T10. 2. No disc protrusions or cord compression.
[2020-10-23] MEDS: gadobenate dimeglumine 20 mL vial IV (10:32)
== END 2020-10-23 09:14 | disposition home or self-care (01) ==
LOC: RADSHAW 09:15
PROVIDERS: PCP Family Medicine; Visit Provider Family Medicine
DX: G95.0 Syringomyelia and syringobulbia (principal)
CPT/HCPCS: 72157; A9577

== ENCOUNTER → 2020-11-05 16:11 | Outpatient (BNVA) | payer OTHER, SELFPAY | PROVIDERS: PCP Family Medicine; Referring Provider Family Medicine; Visit Provider Orthopaedic Surgery | DX: M48.061 Spinal stenosis, lumbar region without neurogenic claudication (principal) | CPT/HCPCS: 72070; 72110 ==

== ENCOUNTER → 2020-11-12 08:08 | Outpatient (BNVA) | payer OTHER, SELFPAY | PROVIDERS: PCP Family Medicine; Referring Provider Orthopaedic Surgery; Visit Provider Anesthesiology Pain Medicine | DX: M48.062 Spinal stenosis, lumbar region with neurogenic claudication (principal); M47.816 Spondylosis without myelopathy or radiculopathy, lumbar region; M54.16 Radiculopathy, lumbar region | CPT/HCPCS: 99205 ==

== ENCOUNTER 2020-11-20 12:52 | Outpatient (RCR) | payer OTHER, SELFPAY | END 2020-12-09 23:59 | disposition home or self-care (01) | LOC: SPT 12:52 | PROVIDERS: PCP Family Medicine; Referring Provider Family Medicine; Visit Provider Family Medicine | DX: M54.9 Dorsalgia, unspecified (principal) | CPT/HCPCS: 97110; 97162 ==

== ENCOUNTER → 2020-12-09 13:35 | Outpatient (BNVA) | payer OTHER, SELFPAY | PROVIDERS: PCP Family Medicine; Visit Provider Anesthesiology Pain Medicine | DX: M54.16 Radiculopathy, lumbar region (principal); M48.062 Spinal stenosis, lumbar region with neurogenic claudication | CPT/HCPCS: 64483; 64484; J1100; J3490 ==

== ENCOUNTER → 2021-03-22 08:54 | Outpatient (BNVA) | payer OTHER, SELFPAY | PROVIDERS: Visit Provider Family Medicine | DX: M47.816 Spondylosis without myelopathy or radiculopathy, lumbar region (principal); F41.1 Generalized anxiety disorder; F33.0 Major depressive disorder, recurrent, mild; R00.2 Palpitations | CPT/HCPCS: 80053; 84443; 85025 ==

== ENCOUNTER 2021-04-13 07:40 | Outpatient (CLI) | payer OTHER, SELFPAY ==
--- NOTE | 2021-04-13 07:54 | MR_ITS ---
WS: [id number] MRI THORACIC SPINE WITH CONTRAST TECHNIQUE: Sagittal T1, T2 and STIR imaging. Axial T2 imaging. Post gadolinium imaging was obtained. 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 No acute compression. No high-grade central canal stenosis. Again seen is the no nenhancing syrinx within the thoracic cord unchanged from the prior examination. Central syrinx exten ds from approximately T3-T11. Maximum dimension measures approximately 2 mm unchanged from previous. No abnormal enhancement. Normal caliber thoracic aorta. Adrenal glands are normal. MR/MR thoracic spine wo/w [id number] IMPRESSION: 1. Stable nonenhancing syrinx within the thoracic cord most prominent extendin g from T3 through T11. This measures 2 mm in maximum dimension. No evidence of progression. 2. No abnormal gadolinium enhancement. 3. No other significant changes from previous.
[2021-04-13] MEDS: gadobenate dimeglumine 20 mL vial IV (08:31)
== END 2021-04-13 07:41 | disposition home or self-care (01) ==
LOC: RADSHAW 07:43
PROVIDERS: Visit Provider Orthopaedic Surgery
DX: G95.0 Syringomyelia and syringobulbia (principal)
CPT/HCPCS: 72157; A9577

== ENCOUNTER 2021-08-27 08:40 | Emergency (ER) | payer OTHER, SELFPAY ==
[2021-08-27 08:48] VITALS: BP 137/108; PULSE 94; RESP 16; TEMP 36.9; O2SAT 100; BMI 28.8
--- NOTE | 2021-08-27 08:55 | XR_ITS ---
WS: [id number] XR lumbar spine 2-3V* [id number] REASON FOR EXAM: fall, landed on butt FINDINGS: Mild rotatory scoliosis convex left on the AP view. Normal lordosis on the lateral view. No significa nt compression deformity or focal vertebral body abnormality. Disc spaces are well preserved. No spondylolysis. No significant spondylolisthesis. Lumbar spine unchanged compared to 11/05/2020. XR/XR lumbar spine 2-3V* [id number] IMPRESSION: No acute abnormality.
--- NOTE | 2021-08-27 08:56 | ED_ITS ---
HPI - Back Pain/Injury General: Chief Complaint: Back Pain/Injury Stated Complaint: low back pain; leg numbness Time Seen by Provider: 08/27/21 08:43 History of Present Illness: Patient says she slipped on stairs this morning and landed on her butt and struck her low back up against a stair also. Patient is able ambulate but complains about pain in her low back and radiating down left side. Patient has a history of chronic back pain with lumbar stenosis with neurogenic claudication he has been cared for by Dr. Palma and patient has received injections in her back. Denies any other injury. Associated symptoms: Deny abdominal pain, chills, fever(s), nausea or vomiting Review of Systems Narrative: Fall Const: Denies: fever(s), chills or body aches Eyes: Denies: eye discomfort ENMT: Denies: throat pain Card: Denies: chest pain Resp: Denies: dyspnea GI: Denies: abdominal pain, nausea or vomiting Musc: Reports: back pain Skin/Breast: Denies: rash Neuro: Denies: headache(s) Psych: Denies: depression or suicidal ideation PFSH ED PFSH: Medical History Recent childbirth 3 natural births Surgical History History of cholecystectomy Family History Grandmother Breast cancer Paternal grandmother Ovarian cancer Paternal grandmother Mother Diabetes Hypertension Family history of thyroid problem Grandfather Heart disease Paternal grandfather Maternal grandfather Other Parkinson disease Social History Smoking and tobacco status: never smoked Alcohol intake: current Alcohol intake frequency: holidays/special occasions only History of recent travel: No Female Reproductive History: Date of last menstrual period: 08/14/21 Physical Exam Const: COMMON NORMALS: no acute distress, patient oriented x3 and alert HENMT: COMMON NORMALS: normocephalic and external ears normal HEAD & SCALP: normocephalic EXTERNAL EAR: Yes external ears normal Eye: COMMON NORMALS: EOMs intact bilaterally Neck/C-Spine: COMMON NORMALS: no JVD Resp: COMMON NORMALS: normal respiratory effort and No use of accessory muscles Cardio: COMMON NORMALS: no JVD GI: INSPECTION: Yes normal to inspection Back/Pelvis: LUMBAR SPINE/LOWER BACK: Yes normal to inspection, Yes lumbar ROM normal, Yes lumbar spinal tenderness and Yes paraspinal muscle tenderness Lumbar paraspinal muscle tenderness: left Extremity: COMMON NORMALS: normal to inspection and full ROM Neuro: COMMON NORMALS: patient oriented x3 SENSORIUM/ORIENTATION: Yes alert Psych: COMMON NORMALS: mental status grossly normal Skin: COMMON NORMALS: no rashes or lesions noted GENERAL SKIN EXAM: no rashes or lesions noted Course Vital Signs: Vital signs: Vital Signs Temperature 98.5 F 08/27/21 08:48 Pulse Rate 94 08/27/21 08:48 Respiratory Rate 16 08/27/21 08:48 Blood Pressure 137/108 08/27/21 08:48 Pulse Oximetry 100 08/27/21 08:48 MDM - Back Pain/Injury Medical Decision Making Patient with a fall today has tenderness to her lumbar spine. Radiology studies were negative. Aggravation of chronic low back pain. Prescription was given follow-up primary care provider as needed. Discharge Plan Discharge Patient Disposition: Home Clinical Impression: Fall, Lumbar contusion Condition: Stable Prescriptions: New Celebrex 100 mg capsule 100 mg PO BID Qty: 20 0RF No Action venlafaxine [Effexor XR] 75 mg capsule,extended release 24hr 75 mg PO DAILY Qty: 30 1RF Discharge Orders: Discharge ED (Routine); Ordered 08/27/21 Ordered By: Ruben Logan Referrals: Sandeep De La Cruz DO [Primary Care Provider] - Discharge Diet: Usual diet Discharge Activity: Increase activity as tolerated Patient Instructions: Contusion in Adults (ED) Activity Restrictions/Additional Instructions: Follow-up with medical provider as directed. Take medications as prescribed. Return to the ER or your medical provider if condition worsens. Please read and understand discharge instructions. If any questions ask please. Coding Level of Care Code ED Affiliate Marketing Coordinator for [facility] Exam Comprehensive
[2021-08-27] MEDS: CELEcoxib 200 mg Capsule 400 MG PO (09:14)
[2021-08-27 09:38] VITALS: BP 137/108; PULSE 53; RESP 18; O2SAT 95
== END 2021-08-27 09:26 | disposition home or self-care (01) ==
PROVIDERS: Emergency Provider Nurse Practitioner Family; PCP Family Medicine
DX: S30.0XXA Contusion of lower back and pelvis, initial encounter (principal); W01.0XXA Fall on same level from slipping, tripping and stumbling without subsequent striking against object, initial encounter
CPT/HCPCS: 72100; 99283

== ENCOUNTER → 2021-09-02 13:31 | Outpatient (BNVA) | payer OTHER, SELFPAY | PROVIDERS: PCP Family Medicine; Visit Provider Physician Assistant | DX: M54.16 Radiculopathy, lumbar region (principal) | CPT/HCPCS: 72110 ==

== ENCOUNTER 2021-10-08 14:06 | Outpatient (CLI) | payer OTHER, SELFPAY ==
--- NOTE | 2021-10-08 13:45 | MR_ITS ---
WS: [id number] MRI LUMBAR SPINE NONCONTRAST TECHNIQUE: Sagittal T1, T2 and STIR imaging. Axial T1 and T2 imaging. CLINICAL INFORMATION: M48.062 - Spinal stenosis, lumbar region with neurogenic ... COMPARISON: MRI September 28, 2020 FINDINGS: Mild lumbar curve. No acute compression. No high-grade central canal stenosis. L1-L2: Normal. L2-L3: Slight annular bulging. Mild facet arthropathy. Spinal canal and foramen are patent. Tiny deysi lar fissure. L3-L4: Mild annular bulging with slight effacement of ventral thecal sac and tiny annular fissure. Mi ld facet arthropathy. Spinal canal and foramen are patent. L4-L5: Mild annular bulging. Small annular fissure. Slight effacement of ventral thecal sac. Foramen are patent. L5-S1: Mild disc bulging. Slight effacement of ventral thecal sac. Spinal canal and foramen are paten t. Mild facet arthropathy. Small annular fissure Visualized pelvic bony structures: Normal. Paravertebral soft tissues: Normal. Previously described thoracic syrinx better seen on the previous thoracic spine MRI. MR/MR lumbar spine wo con* [id number] IMPRESSION: 1. Mild lumbar curve. No acute compression. No high-grade central canal stenos is. 2. Mild annular bulging L3-L4 and L4-L5 with slight effacement of ventral thec al sac. Tiny annular fissures. 3. Mild annular bulging L5-S1 with slight effacement of ventral thecal sac wit h small annular fissure new from previous. Disc bulging at this level has progr essed slightly 4. No significant spinal canal or foraminal narrowing. 5. Mild facet arthropathy L3-L4 and L4-L5.
== END 2021-10-08 14:07 | disposition home or self-care (01) ==
PROVIDERS: PCP Family Medicine; Visit Provider Physician Assistant
DX: M48.062 Spinal stenosis, lumbar region with neurogenic claudication (principal); M51.26 Other intervertebral disc displacement, lumbar region; M47.816 Spondylosis without myelopathy or radiculopathy, lumbar region
CPT/HCPCS: 72148

== ENCOUNTER 2021-10-23 12:44 | Emergency (ER) | payer OTHER, SELFPAY ==
[2021-10-23 12:53] VITALS: BP 120/86; PULSE 108; RESP 18; TEMP 37.1; O2SAT 100
[2021-10-23 14:42] LABS: Basophils % 0.2 %; Eosinophils % 0.2 %; Hematocrit 44.2 % (37.0-47.0); Hemoglobin 14.7 g/dL (11.5-15.3); Lymphocytes # 0.5 10^3/uL (0.8-4.8); Lymphocytes % 5.8 %; Mean Corpuscular HGB Conc 33.3 g/dL (30.0-36.0); Mean Corpuscular Hemoglobin 28.4 pg (28.0-34.0); Mean Corpuscular Volume 85.3 fl (81-99); Mean Platelet Volume 9.6 fL (7.4-10.4); Monocytes # 0.6 10^3/uL (0.2-0.9); Monocytes % 6.1 %; Neutrophils # 7.84 10^3/uL (1.8-7.7); Neutrophils % 87.4 %; Nucleated Red Blood Cells % 0 %; Platelet Count 215 10^3/cmm (130-400); Red Blood Count 5.18 10^6/uL (4.1-5.3); Red Cell Distribution Width 12.4 % (12.1-15.1)
[2021-10-23 14:54] LABS: HCG Qualitative Urine. Negative (Negative)
[2021-10-23 14:58] LABS: Alanine Aminotransferase 16 U/L (0-33); Albumin Level 4.8 g/dL (3.5-5.2); Alkaline Phosphatase 56 IU/L (35-105); Anion Gap 15.7 (5-19); Aspartate Amino Transferase 15 U/L (0-32); Blood Urea Nitrogen 8 mg/dL (6-20); Calcium 9.3 mg/dL (8.5-10.5); Carbon Dioxide 23 mmol/L (22-29); Chloride 103 mmol/L (98-107); Globulin 3.1 g/dL (1.3-4.6); Glomerular Filtration Rate 99.6 mL/min (90-130); Glucose 114 mg/dL (65-115); Lipase 22 U/L (13-60); Osmolality Calculated 285 mOsm/kg (285-295); Potassium 3.7 mmol/L (3.5-5.1); Sodium 138 mmol/L (136-145); Total Bilirubin 0.6 mg/dL (0.15-1.2); Total Protein 7.9 g/dL (6.6-8.7)
[2021-10-23 15:02] LABS: Add Urine Microscopic? YES; Bilirubin Urine Neg (Negative); Blood Urine 2+ (Negative); Glucose Urine UA Norm (Normal); Ketones Urine Negative (Negative); Leukocyte Esterase Urine Negative (Negative); Nitrate Urine Negative (Negative); Protein Urine Neg (Negative); Urine Appearance Clear (CLEAR); Urine Color Yellow (Yellow); Urobilinogen Urine Norm (Negative); pH Urine 5 (5-7)
[2021-10-23 15:03] LABS: Add Urine Culture? No; Bacteria Urine TRACE /hpf; Mucus Urine 1+ /hpf; Squamous Epithelial Cell Urine 0-4 /hpf (0-5)
--- NOTE | 2021-10-23 15:12 | ED_ITS ---
HPI - Abdominal Pain General: Chief Complaint: Abdominal Pain Stated Complaint: ABD pain Time Seen by Provider: 10/23/21 14:41 Source: patient Mode of arrival: ambulatory Limitations: no limitations History of Present Illness: 26-year-old female presents emergency room with complaints of generalized abdominal discomfort localize a little more to the right lower quadrant is been going on for last couple days but very nauseated she had some diarrhea initially she has not actually vomited she denies dysuria urgency or frequency. No fever sweats or chills. MD elicited complaint: abdominal pain Pertinent past history: none Onset (ago): day(s) (2) Pain Consistency: intermittent Location: RLQ Severity: mild Quality: cramping Radiation: none Migration to: no migration Exacerbating factors: nothing Relieving factors: nothing Associated Symptoms: Denies anorexia, belching, bloating, change in bowel habits, change in stool character, chills, coffee ground emesis, constipation, GI cramping, diarrhea, dyspepsia, dysuria, excessive flatus, fever(s), heartburn, hematochezia, hematuria, hematemesis, fecal incontinence, loose stools, melena, nausea, poor appetite, syncope and vomiting Related Data: Date of Last Menstrual Period: 10/13/21 Review of Systems Const: Denies: fever(s) or chills ENMT: Denies: throat pain, ear or mastoid pain, nasal discharge or nasal congestion Card: Denies: chest pain, palpitations, irregular heart rhythm, edema, swelling of feet/ankles or syncope Resp: Denies: dyspnea, productive cough or non-productive cough GI: Reports: abdominal pain; Denies: nausea, vomiting, hematemesis, coffee ground emesis, heartburn, diarrhea, constipation, bloating, GI cramping, belching, excessive flatus, fecal incontinence, change in bowel habits, change in stool character, hematochezia or melena : Denies: flank pain, difficulty voiding, dysuria, urinary frequency, ur inary urgency or hematuria Skin/Breast: Denies: rash or pruritus Neuro: Denies: headache(s) PFS ED PFSH: Medical History Recent childbirth 3 natural births Surgical History History of cholecystectomy Family History Grandmother Breast cancer Paternal grandmother Ovarian cancer Paternal grandmother Mother Diabetes Hypertension Family history of thyroid problem Grandfather Heart disease Paternal grandfather Maternal grandfather Other Parkinson disease Social History Smoking and tobacco status: never smoked Alcohol intake: current Alcohol intake frequency: holidays/special occasions only History of recent travel: No Female Reproductive History: Date of last menstrual period: 10/13/21 Physical Exam Const: GENERAL APPEARANCE: cooperative and comfortable ORIENTATION/CONSCIOUSNESS: Yes awake, Yes oriented to person, Yes oriented to place and Yes oriented to time HENMT: COMMON NORMALS: normocephalic, atraumatic, hearing grossly normal bilaterally and external ears normal HEAD & SCALP: normocephalic and atraumatic EXTERNAL EAR: Yes external ears normal Eye: COMMON NORMALS: Equal, round and reactive pupils present, EOMs intact bilaterally, conjunctivae normal and no scleral icterus CONJUNCTIVA: Yes conjunctivae normal PUPIL: Yes Equal, round and reactive pupils present Neck/C-Spine: COMMON NORMALS: full ROM, no lymphadenopathy, supple and no JVD Lymph: LYMPHATIC: no lymphadenopathy noted and no lymphedema noted Resp: COMMON NORMALS: normal respiratory effort, No retractions, No use of accessory muscles and clear to auscultation bilaterally AUSCULTATION: clear to auscultation bilaterally Cardio: COMMON NORMALS: no JVD, regular rate, regular rhythm and No murmurs present (Cardio) RATE: regular rate RHYTHM: regular rhythm GI: COMMON NORMALS: Soft to palpation and No hepatosplenomegaly present AUSCULTATION: Yes normoactive bowel sounds PALPATION: Yes Soft to palpation, No Tenderness to palpation present (GI), No Guarding due to palpation present (GI) and Yes No hepatosplenomegaly present Extremity: COMMON NORMALS: normal to inspection, capillary refill normal, no clubbing, cyanosis or edema, no calf tenderness and no pedal edema Neuro: SENSORIUM/ORIENTATION: Yes oriented to person, Yes oriented to place and Yes oriented to time Skin: COMMON NORMALS: no rashes or lesions noted GENERAL SKIN EXAM: no rashes or lesions noted Course Vital Signs: Vital signs: Vital Signs Temperature 98.7 F 10/23/21 12:53 Pulse Rate 108 H 10/23/21 12:53 Respiratory Rate 18 10/23/21 12:53 Blood Pressure 120/86 10/23/21 12:53 Pulse Oximetry 100 10/23/21 12:53 MDM - Abdominal Pain Medical Decision Making Labs and imaging reviewed. Patient improved after fluids discharge home clear liquid diet antiemetics as needed follow-up as needed Medical Records I reviewed the patient's medical records. Lab Data I reviewed the patient's lab results. : 10/23/21 14:25 10/23/21 14:25 Labs/Radiology: Laboratory Results WBC 9.0 10^3/uL (4.0-10.0) 10/23/21 14: RBC 5.18 10^6/uL (4.1-5.3) 10/23/21 14: Hgb 14.7 g/dL (11.5-15.3) 10/23/21 14: Hct 44.2 % (37.0-47.0) 10/23/21 14: MCV 85.3 fl (81-99) 10/23/21 14: MCH 28.4 pg (28.0-34.0) 10/23/21 14: MCHC 33.3 g/dL (30.0-36.0) 10/23/21 14: RDW 12.4 % (12.1-15.1) 10/23/21 14: Plt Count 215 10^3/cmm (130-400) 10/23/21 14: MPV 9.6 fL (7.4-10.4) 10/23/21 14: Neut % (Auto) 87.4 % 10/23/21 14: Lymph % (Auto) 5.8 % 10/23/21 14: [place] % (Auto) 6.1 % 10/23/21 14: Eos % (Auto) 0.2 % 10/23/21 14: Baso % (Auto) 0.2 % 10/23/21 14: Neut # (Auto) 7.84 10^3/uL (1.8-7.7) H 10/23/21 14: Lymph # (Auto) 0.5 10^3/uL (0.8-4.8) L 10/23/21 14:25 [place] # (Auto) 0.6 10^3/uL (0.2-0.9) 10/23/21 14:25 Eos # (Auto) 0.0 10^3/uL (0.0-0.8) 10/23/21 14:25 Baso # (Auto) 0.0 10^3/uL (0.0-0.1) 10/23/21 14:25 Nucleated RBC % (auto) 0 % 10/23/21 14:25 Nucleated RBCs # 0.0 /100WBC 10/23/21 14:25 Sodium 138 mmol/L (136-145) 10/23/21 14:25 Potassium 3.7 mmol/L (3.5-5.1) 10/23/21 14:25 Chloride 103 mmol/L (98-107) 10/23/21 14:25 Carbon Dioxide 23 mmol/L (22-29) 10/23/21 14:25 Anion Gap 15.7 (5-19) 10/23/21 14:25 BUN 8 mg/dL (6-20) 10/23/21 14:25 Creatinine 0.7 mg/dL (0.5-0.9) 10/23/21 14:25 GFR Calculation 99.6 mL/min (90-130) 10/23/21 14:25 Glucose 114 mg/dL (65-115) 10/23/21 14:25 Calculated Osmolality 285 mOsm/kg (285-295) 10/23/21 14:25 Calcium 9.3 mg/dL (8.5-10.5) 10/23/21 14:25 Total Bilirubin 0.6 mg/dL (0.15-1.2) 10/23/21 14:25 AST 15 U/L (0-32) 10/23/21 14:25 ALT 16 U/L (0-33) 10/23/21 14:25 Alkaline Phosphatase 56 IU/L (35-105) 10/23/21 14:25 Total Protein 7.9 g/dL (6.6-8.7) 10/23/21 14:25 Albumin 4.8 g/dL (3.5-5.2) 10/23/21 14:25 Globulin 3.1 g/dL (1.3-4.6) 10/23/21 14: Lipase 22 U/L (13-60) 10/23/21 14: HCG, Qual Negative (Negative) 10/23/21 14: Urine Color Yellow (Yellow) 10/23/21 14: Urine Appearance Clear (CLEAR) 10/23/21 14: Urine pH 5 (5-7) 10/23/21 14: Ur Specific [place] 1.020 (1.005-1.030) 10/23/21 14: Urine Protein Neg (Negative) 10/23/21 14: Urine Glucose (UA) Norm (Normal) 10/23/21 14: Urine Ketones Negative (Negative) 10/23/21: Urine Blood 2+ (Negative) H 10/23/21 14: Urine Nitrate Negative (Negative) 10/23/21 14: Urine Bilirubin Neg (Negative) 10/23/21 14: Urine Urobilinogen Norm mg/dL (Negative) 10/23/21 14: Ur Leukocyte Esterase Negative (Negative) 10/23/21 14: Urine RBC 5-10 /hpf (0-2) H 10/23/21 14:25 Urine WBC 5-10 /hpf (0-5) H 10/23/21 14:25 Ur Squamous Epith Cells 0-4 /hpf (0-5) H 10/23/21 14: Amorphous Sediment Not Reportable 10/23/21 14: Urine Bacteria Trace /hpf (NONE) 10/23/21 14: Urine Mucus 1+ /hpf 10/23/21 14:25 Discharge Plan Discharge Patient Disposition: Home Clinical Impression: Gastroenteritis Condition: Stable Prescriptions: New promethazine 25 mg tablet 25 mg PO Q6H PRN (Reason: nausea and vomiting) Qty: 20 0RF No Action venlafaxine [Effexor XR] 75 mg capsule,extended release 24hr 75 mg PO DAILY Qty: 30 1RF prednisone 20 mg tablet See Rx Instructions PO DAILY Qty: 20 0RF Rx Instructions: 3 tabs by mouth day 1-3, 2 tabs days 4-6, 1 days 7-9, 1/2 days 10-12. PO daily; hydrocodone-acetaminophen 5-325 mg tablet 1 tab PO Q8H PRN (Reason: pain) 7 Days Qty: 20 0RF baclofen 5 mg tablet 5 mg PO BID PRN (Reason: muscle spasm) Qty: 20 0RF Celebrex 100 mg capsule 100 mg PO BID Qty: 20 0RF Discharge Orders: Discharge ED (Routine); Ordered 10/23/21 Ordered By: Jorge Herrera Referrals: Sandeep De La Cruz, [Primary Care Provider] - Discharge Diet: Clear Liquid Discharge Activity: Increase activity as tolerated Patient Instructions: Opioid Safety Activity Restrictions/Additional Instructions: Clear liquid diet for the next 24 to 48 hours and advance as tolerated use promethazine as needed. Coding Level of Care Code ED Violin Restorer for Taylor Fwd Exam Comprehensive
[2021-10-23] MEDS: ondansetron 2 mg/ML SDV 2 mL 4 MG IVP (15:20)
[2021-10-23] MEDS: sodium chloride 0.9% 1,000 ML 999 ML IV ×2 (15:21→16:25)
[2021-10-23] MEDS: ketorolac 30 mg/mL INJ IVP (17:00)
== END 2021-10-23 17:20 | disposition home or self-care (01) ==
PROVIDERS: Emergency Medicine; Emergency Provider Family Medicine; PCP Family Medicine
DX: K52.9 Noninfective gastroenteritis and colitis, unspecified (principal)
CPT/HCPCS: 80053; 81001; 81025; 83690; 85025; 96361; 96374; 96375; 99284; J1885; J2405; J7030

== ENCOUNTER 2021-11-09 14:51 | Outpatient (CLI) | payer OTHER, SELFPAY ==
--- NOTE | 2021-11-09 15:00 | CT_ITS ---
WS: [id number] CT HEAD TECHNIQUE: Noncontrast and contrast-enhanced CT of the head. CLINICAL INFORMATION: Dizziness, Eye pain, ICP COMPARISON: 2015 DLP: 1975.[address] scans at [facility] use at least one of these dose optimization techniques: automated e xposure control; mA and/or kV adjustment per patient size (includes targeted exams where dose is matc hed to clinical indication); or iterative reconstruction. FINDINGS: No evidence of intracranial hemorrhage or mass effect. Ventricular system and basal cisterns are dela cruz nt. Normal jones-white differentiation. No abnormal intracranial enhancement. No extra-axial fluid co llections. Slightly low-lying cerebellar tonsils measuring approximately 3 mm below the foramen magnu m unchanged from 2015. Normal 4th ventricle. Paranasal sinuses and mastoid air cells well aerated. Normal visualized soft tissues. CT/CT head wo/w con [id number] IMPRESSION: 1. No evidence of intracranial hemorrhage or mass effect. 2. Normal jones-white differentiation 3. No abnormal intracranial enhancement. 4. Mild cerebellar tonsillar ectopia. Normal 4th ventricle.
[2021-11-09] MEDS: iohexol 300 mg/mL 50 mL Btl IV (15:20)
== END 2021-11-09 14:52 | disposition home or self-care (01) ==
PROVIDERS: PCP Family Medicine; Visit Provider Family Medicine
DX: R42 Dizziness and giddiness (principal); H57.10 Ocular pain, unspecified eye
CPT/HCPCS: 70470

== ENCOUNTER → 2022-08-22 13:28 | Outpatient (BNVA) | payer OTHER, SELFPAY | PROVIDERS: PCP Family Medicine; Visit Provider Nurse Practitioner | DX: R39.9 Unspecified symptoms and signs involving the genitourinary system (principal); N39.0 Urinary tract infection, site not specified | CPT/HCPCS: 81000; 87077; 87086; 87184 ==

== ENCOUNTER → 2023-03-28 10:06 | Outpatient (BNVA) | payer OTHER, BC, SELFPAY | PROVIDERS: PCP Family Medicine; Visit Provider Family Medicine | DX: N92.0 Excessive and frequent menstruation with regular cycle (principal); N92.6 Irregular menstruation, unspecified; N94.6 Dysmenorrhea, unspecified | CPT/HCPCS: 80053; 82672; 83001; 83002; 84144; 84439; 84443; 85027 ==

== ENCOUNTER 2023-06-08 08:32 | Day surgery (SDC) | payer OTHER, BC, MEDICAID, SELFPAY ==
--- NOTE | 2023-06-07 23:47 | W.PM.OPSFHP ---
Same Day Surgery H&P Indication for Procedure/HPI DATE OF PROCEDURE: June 08, 2023 CHIEF COMPLAINT/INDICATIONFOR SURGICAL PROCEDURE: menometrorrhagia PREOP DIAGNOSIS: menometrorrhagia PLANNED PROCEDURE: Operation Date: 06/08/23 10:00 Proposed Procedures p [id number]:Hysteroscopy w/ Endometrial Sampling,possible endometrial polypectomy(Not Applicable) - [place] [id number]:Endometrial Ablation w/Novasure,N94.6,N92.0(Not Applicable) - Erick Mata MD 27 y.o. h/o BTL 2019 h/o x three has been having irregular heavy bleeding since BTL now scheduled for hysteroscopy, endometrial sampling, possible endometrial polypectomy;? endometrial ablation with Novasure Medications/Allergies* Home Medications Medication Instructions Recorded Confirmed Type No Known Home Medications 05/22/23 05/24/23 History Allergies/Adverse Reactions Allergy/AdvReac Type Severity Reaction Status Date / Time bupropion [From Wellbutrin] Allergy Intermediate ALGY-Rash Verified 05/24/23 09:20 erythromycin base Allergy Intermediate ALGY-Rash Verified 05/24/23 09:20 iodine Allergy Mild ALGY-Rash Verified 06/07/23 08:57 Pertinent History/Comorbid Conditions* Medical History (Updated 06/05/23 @ 22:53 by Erick Mata MD) Psychiatric care Recent childbirth 3 natural births Surgical History (Updated 04/20/20 @ 17:37 by You Grimaldo MD) History of cholecystectomy Family History (Updated 09/17/19 @ 13:54 by Ayde Baugh LPN) Ovarian cancer Grandmother Paternal grandmother Diabetes Mother Heart disease Grandfather Paternal grandfather Maternal grandfather Breast cancer Grandmother Paternal grandmother Family history of thyroid problem Mother Hypertension Mother Parkinson disease Social History Smoking and tobacco/nicotine status: never used tobacco/nicotine Alcohol intake: current Alcohol intake frequency: holidays/special occasions only Substance/Drug Use: never Pertinent Exam Findings alert, oriented x 3, clear to auscultation bilaterally and regular rate & rhythm Recommendations Surgery/Procedure today Coding Level of Care Code Acute Code for Chg Fwd Time Spent (min) 20
[2023-06-08] VITALS (8 sets, daily range): BP systolic 94–112; BP diastolic 60–75; PULSE 50–77; RESP 10–20; TEMP 36.7–37; O2SAT 96–100
--- NOTE | 2023-06-08 08:56 | ANES.PREANE2 ---
Pre-Anesthetic Assessment Height/Weight: Height 1.73 m Preop Diagnosis: menometrorrhagia Operation Date: 06/08/23 10:00 Proposed Procedures p [id number]:Hysteroscopy w/ Endometrial Sampling,possible endometrial polypectomy(Not Applicable) - E[place] Mata [place] s [id number]:Endometrial Ablation w/Novasure,N94.6,N92.0(Not Applicable) - Erick Mata MD Familial anesthetic complications: None Was Beta Hesham taken within 24 hours: N/A Was Clonidine taken within 24 hours: N/A Last intake: > 8hrs Social No alcohol and No tobacco Exam alert, oriented x 3, clear to auscultation bilaterally and regular rate & rhythm Airway Mallampati: Class II Dentition: partials Neuropsych Neuropathy (L sciatica) Asymptomatic syrinx Anesthetic Plan ASA status: 2 Anesthesia: General Risk of > 500 ml blood loss (7ml/kg in children): No Medications/Allergies Home Medications Medication Instructions Recorded Confirmed Last Taken Type No Known Home Medications 05/22/23 05/24/23 Unknown History Allergies Allergy/AdvReac Type Severity Reaction Status Date / Time bupropion [From Wellbutrin] Allergy Intermediate ALGY-Rash Verified 05/24/23 09:20 erythromycin base Allergy Intermediate ALGY-Rash Verified 05/24/23 09:20 iodine Allergy Mild ALGY-Rash Verified 06/07/23 08:57 [facility] Anesthesia Medical History Psychiatric care Recent childbirth 3 natural births Surgical History History of cholecystectomy Family History Grandmother Breast cancer Paternal grandmother Ovarian cancer Paternal grandmother Mother Diabetes Hypertension Family history of thyroid problem Grandfather Heart disease Paternal grandfather Maternal grandfather Other Parkinson disease Social History Smoking and tobacco/nicotine status: never used tobacco/nicotine Alcohol intake: current Alcohol intake frequency: holidays/special occasions only Substance/Drug Use: never Female Reproductive History Para: 4 Spontaneous abortions: No Data Anesthesia Cardiac Studies: Cardiac Event Monitor 06/01/21
[2023-06-08] MEDS: scopolamine 1.5 Patch 1 PATCH TRANSDERMA (09:02)
[2023-06-08] MEDS: sodium chloride 0.9% 1,000 ML 30 ML IV (09:03)
--- NOTE | 2023-06-08 10:17 | W.PM.OPSUD ---
Surgery/Procedure H&P Update DATE OF PROCEDURE: June 08, 2023 DATE H&P PERFORMED: 06/07/23 H&P UPDATE INFORMATION: I have reviewed H&P completed within last 30 days, I have examined patient prior to procedure and No changes to prior documentation PREOP DIAGNOSIS: menometrorrhagia PLANNED PROCEDURE: Operation Date: 06/08/23 10:00 Proposed Procedures p [id number]:Hysteroscopy w/ Endometrial Sampling,possible endometrial polypectomy(Not Applicable) - Erick Mata MD s [id number]:Endometrial Ablation w/Novasure,N94.6,N92.0(Not Applicable) - Erick Mata MD
[2023-06-08 11:08] LABS: OR HCG Qualitative Urine Negative (Negative)
--- NOTE | 2023-06-08 12:15 | PM.OP ---
Operative Report Date of procedure: June 08, 2023 Pre-op diagnosis: Abnormal uterine bleeding Post-op diagnosis: same Post-op findings: Normal endometrial cavity No endometrial polyps or fibroids Minimal endometrial tissue Procedure done: hysteroscopy curettage of uterus endometrial ablation with Novasure device Specimens removed/disposition: endometrial curettings Surgeon: Erick Mata MD Anesthesia: MAC Estimated blood loss (mL): 0 Complications: none Condition: stable Disposition: PACU Brief History: 27 y.o. with history of menometrorrhagia Procedure: Informed consent was obtained.? The patient was taken to the OR and placed on the table.? General anesthesia was induced.? The patient was then placed in dorsolithotomy position.? The perineum were then prepped and draped in the usual fashion. A speculum was placed in the vagina.? The anterior lip of the cervix was grasped with a sharp-toothed tenaculum.? The uterus was sounded to 8 cm.? The cervix was serially dilated with Hegar dilators.? .? A hysteroscope was placed into the endometrial cavity.? The endometrial cavity was seen to be normal.? There were no polyps or fibroids.? There was minimal endometrial tissue.? The hysteroscope was then removed.? Endometrial curettage was done with a sharp curette.? Endometrial tissue was sent to pathology.?? The Novasure device was then primed and inserted into the endometrial cavity.? The cervical occlusion sleeve was advanced.? Cavity integrity test was done.? The device was activated for 50 seconds.? The Novasure device was then removed. Repeat hysteroscopy showed an intact endometrial cavity with adequate global endometrial ablation.? All instruments were then removed. The sharp-toothed tenaculum was removed.? There was no bleeding from the endometrial cavity or cervix.? The patient was then placed supine and awakened and taken to the PACU. Postop condition:? stable EBL:? 0 cc Sponge and instruments counts were normal x 2 Complications:? none
--- NOTE | 2023-06-08 12:25 | ANE.PACU2 ---
Inpatient post-anesthesia follow up: Airway intact: Yes Vital signs: Temperature 98.1 F Pulse Rate 62 Respiratory Rate 18 Blood Pressure 103/73 Pulse Oximetry 100 Oxygen Delivery Me thod Room Air Oxygen Flow Rate 7 Fraction of Inspir ed Oxygen Hydration adequate: Yes Nausea and vomiting: No Pain level: 1 Mental status: Baseline
== END 2023-06-08 12:25 | disposition home or self-care (01) ==
PROVIDERS: Anesthesiology; PCP Family Medicine; Visit Provider Obstetrics & Gynecology
PROC: 0UJD8ZZ Inspection of Uterus and Cervix, Via Natural or Artificial Opening Endoscopic (ICD-10-PCS; CPT 58555; principal; 2023-06-08 09:50)
PROC: (CPT 58999; 2023-06-08 09:50)
DX: N93.9 Abnormal uterine and vaginal bleeding, unspecified (principal)
CPT/HCPCS: 58558; 84703; 88305; J1100; J1885; J2250; J2405; J2704; J3010; J7030

== ENCOUNTER 2024-01-26 13:29 | Emergency (ER) | payer OTHER, BC, MEDICAID, SELFPAY ==
[2024-01-26 13:36] VITALS: BP 131/92; PULSE 72; RESP 16; TEMP 36.9; O2SAT 98; BMI 26.6
--- NOTE | 2024-01-26 13:36 | XR_ITS ---
WS: [id number] Examination: [place] [id number] Reason for Exam: injury Date: January 26, 2024 Comparison: None. Findings: The bone density is maintained. There is no destruction There is no displaced fracture or dislocation of the left humerus. XR/[place] [id number] Impression: No displaced fractures identified.
--- NOTE | 2024-01-26 13:36 | XR_ITS ---
WS: [id number] Examination: XR shoulder LT min 2V* [id number] Reason for Exam: injury Date: January 26, 2024 Comparison: None. Findings: The bone density is maintained without destruction There is no displaced fracture or dislocation. AC joint is intact on these nonstress views. XR/XR shoulder LT min 2V* [id number] Impression: No acute bony abnormalities identified involving the left shoulder
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
[2024-01-26] MEDS: naproxen 500 mg Tablet PO (14:22)
[2024-01-26 14:54] VITALS: BP 125/85; PULSE 60; O2SAT 96
== END 2024-01-26 14:25 | disposition home or self-care (01) ==
PROVIDERS: Emergency Provider Emergency Medicine; PCP Family Medicine
DX: S46.912A Strain of unspecified muscle, fascia and tendon at shoulder and upper arm level, left arm, initial encounter (principal); S00.83XA Contusion of other part of head, initial encounter; Y04.2XXA Assault by strike against or bumped into by another person, initial encounter; Y99.0 Civilian activity done for income or pay
CPT/HCPCS: 73030; 73060; 99283

== ENCOUNTER → 2024-04-03 08:16 | Outpatient (BNVA) | payer OTHER, BC, MEDICAID, SELFPAY | PROVIDERS: PCP Family Medicine | DX: M25.572 Pain in left ankle and joints of left foot (principal); M25.472 Effusion, left ankle | CPT/HCPCS: 73610 ==

== ENCOUNTER 2024-06-20 10:12 | Observation (INO) | payer OTHER, BC, MEDICAID, SELFPAY ==
[2024-06-20] VITALS (16 sets, daily range): BP systolic 104–130; BP diastolic 62–78; PULSE 50–102; RESP 12–18; TEMP 36.2–37; O2SAT 95–100; BMI 28.1
--- NOTE | 2024-06-20 04:25 | W.PM.OPSFHP ---
Same Day Surgery H&P Indication for Procedure/HPI DATE OF PROCEDURE: June 20, 2024 CHIEF COMPLAINT/INDICATIONFOR SURGICAL PROCEDURE: heavy menstrual bleeding PREOP DIAGNOSIS: heavy menstrual bleeding PLANNED PROCEDURE: Operation Date: 06/20/24 07:00 Proposed Procedures p Total Vaginal Hysterectomy 11870, N93.9(Not Applicable) - Erick Mata MD 28 y.o. h/o BTL h/o x three h/o endometrial ablation has continued to have heavy menstrual bleeding now scheduled for hysterectomy Medications/Allergies* Home Medications Medication Instructions Recorded Confirmed Type No Known Home Medications 04/09/24 04/09/24 History Allergies/Adverse Reactions Allergy/AdvReac Type Severity Reaction Status Date / Time bupropion [From Wellbutrin] Allergy Intermediate ALGY-Rash Verified 06/19/24 09:54 erythromycin base Allergy Intermediate ALGY-Rash Verified 06/19/24 09:54 iodine Allergy Mild ALGY-Rash Verified 06/19/24 09:54 Pertinent History/Comorbid Conditions* Medical History (Updated 04/09/24 @ 08:28 by Paulino Gasca MD) Recent childbirth 3 natural births Surgical History (Updated 04/09/24 @ 08:17 by Paulino Gasca MD) History of cholecystectomy Family History (Updated 09/17/19 @ 13:54 by Ayde Baugh LPN) Ovarian cancer Grandmother Paternal grandmother Diabetes Mother Heart disease Grandfather Paternal grandfather Maternal grandfather Breast cancer Grandmother Paternal grandmother Family history of thyroid problem Mother Hypertension Mother Parkinson disease Social History Smoking and tobacco/nicotine status: never used tobacco/nicotine Alcohol intake: current Alcohol intake frequency: holidays/special occasions only Substance/Drug Use: never Pertinent Exam Findings alert, oriented x 3, clear to auscultation bilaterally and regular rate & rhythm Recommendations Surgery/Procedure today Coding Level of Care Code Acute Code for Chg Fwd Time Spent (min) 10
[2024-06-20] MEDS: sodium chloride 0.9% 1,000 ML 30 ML IV (06:48)
--- NOTE | 2024-06-20 06:52 | W.PM.OPSUD ---
Surgery/Procedure H&P Update DATE OF PROCEDURE: June 20, 2024 DATE H&P PERFORMED: 06/20/24 H&P UPDATE INFORMATION: I have reviewed H&P completed within last 30 days, I have examined patient prior to procedure and No changes to prior documentation PREOP DIAGNOSIS: heavy menstrual bleeding PLANNED PROCEDURE: Operation Date: 06/20/24 07:00 Proposed Procedures p Total Vaginal Hysterectomy 09318, N93.9(Not Applicable) - Erick Mata MD
[2024-06-20] MEDS: scopolamine 1 mg PATCH 1 PATCH TRANSDERMA (06:55)
[2024-06-20] MEDS: ceFAZolin 2,000 mg SDV 2000 MG IVP (07:00)
[2024-06-20 07:03] LABS: OR HCG Qualitative Urine Negative (Negative)
--- NOTE | 2024-06-20 07:48 | ANES.PREANE2 ---
Pre-Anesthetic Assessment Height/Weight: Height 1.73 m Weight 83.915 kg Temp Pulse Resp BP Pulse Ox O2 Del Method 98.1 F 74 17 130/78 99 Room Air 06/20/24 06:12 06/20/24 06:12 06/20/24 06:12 06/20/24 06:12 06/20/24 06:12 06/20/24 06:12 Preop Diagnosis: heavy menstrual bleeding Operation Date: 06/20/24 07:00 Proposed Procedures p Total Vaginal Hysterectomy 26126, N93.9(Not Applicable) - Erick Mata MD Familial anesthetic complications: PONV Was Beta Hesham taken within 24 hours: N/A Was Clonidine taken within 24 hours: N/A Last intake: Intake Last Liquid Date 06/19/24 Last Liquid Time 22:00 Last Solid Date 06/19/24 Last Solid Time 18:00 Social No alcohol and No tobacco Exam alert, oriented x 3, clear to auscultation bilaterally and regular rate & rhythm Airway Submandibular: within normal limits Cervical ROM: within normal limits Mallampati: Class II Dentition: full Musc/skel Lower Back Pain Neuropsych Anxiety, Depression and Headache Anesthetic Plan ASA status: 2 Anesthesia: General Medications/Allergies Home Medications Medication Instructions Recorded Confirmed Last Taken Type No Known Home Medications 04/09/24 04/09/24 Unknown History Allergies Allergy/AdvReac Type Severity Reaction Status Date / Time bupropion [From Wellbutrin] Allergy Intermediate ALGY-Rash Verified 06/19/24 09:54 erythromycin base Allergy Intermediate ALGY-Rash Verified 06/19/24 09:54 iodine Allergy Mild ALGY-Rash Verified 06/19/24 09:54 Current Medications Generic Name Dose Route Start Last Admin Trade Name Freq PRN Reason Stop Dose Admin Sodium Chloride 1,000 mls @ 30 mls/hr 06/20/24 06:15 06/20/24 06:48 Sodium Chloride 0.9% IV 06/21/24 06:14 30 mls/hr .Q24H ELISSA Administration PFSH Anesthesia Medical History Recent childbirth 3 natural births Surgical History History of cholecystectomy Family History Grandmother Breast cancer Paternal grandmother Ovarian cancer Paternal grandmother Mother Diabetes Hypertension Family history of thyroid problem Grandfather Heart disease Paternal grandfather Maternal grandfather Other Parkinson disease Social History Smoking and tobacco/nicotine status: never used tobacco/nicotine Alcohol intake: current Alcohol intake frequency: holidays/special occasions only Substance/Drug Use: never Female Reproductive History Para: 4 Spontaneous abortions: No Data Anesthesia Cardiac Studies: Cardiac Event Monitor 06/01/21
[2024-06-20] MEDS: fentaNYL 50 mcg/mL INJ 2mL IVP (09:36)
[2024-06-20] MEDS: ketorolac 30 mg/mL INJ IVP ×3 (10:39→21:09)
[2024-06-20] MEDS: HYDROcodone-acetaminophen 5-325 mg Tablet PO ×3 (10:39→22:56)
--- NOTE | 2024-06-20 11:05 | PM.OP ---
Operative Report Date of procedure: June 20, 2024 Pre-op diagnosis: chronic menorrhagia Post-op diagnosis: same Post-op findings: normal-sized uterus normal ovaries Procedure done: Total vaginal hysterectomy Implants: none Specimens removed/disposition: uterus, sent to pathology Surgeon: Morris Gilliam MD Finished Goods Planner: Erick Mata MD Anesthesia: General Estimated blood loss (mL): 25 Complications: none Findings: normal-sized uterus normal ovaries Condition: stable Disposition: PACU Brief History: 28 y.o. with history of endometrial ablation Continued to have heavy menstrual bleeding Procedure: Informed consent signed. The patient was taken to the operating room and placed supine on the table. General endotracheal anesthesia was induced. The patient was placed in dorsal lithotomy position, prepped, and draped in the usual sterile fashion. A Wade catheter was placed. A Bookwalter retractor was placed in the vagina. The cervix was grasped with a single-toothed tenaculum. Approximately 10 cc of 2% lidocaine with epinephrine was injected circumferentially submucosally at the cervico-vaginal junction. The cervix was circumferentially incised with the bovie. The bladder was dissected off the pubovesical cervical fascia anteriorly with Metzenbaum scissors and also bluntly with a sponge stick. The anterior cul-de-sac was entered sharply with Metzenbaum scissors, avoiding the bladder. The posterior cul-de-sac was entered using the Metzenbaum scissors. The uterosacral ligaments on both sides were isolated and ligated with O-Vicryl suture ligature. The Ligasure device was used to coagulate, cut and ligate the uterosacral ligaments and the cardinal ligaments on both sides. The uterine arteries were clamped, cut, and ligated with the Ligasure device. Good hemostasis was seen. The broad ligaments on both sides were then clamped, ligated, and cut using the Ligasure device. Both cornua were similarly excised. The uterus was thus removed and sent to pathology. The pedicles were again inspected and was seen to be hemostatic. The peritoneum was then closed with O-Vicryl suture after the bladder was drained. The vaginal cuff was then closed beginning with transfixing the cardinal and uterosacral ligaments. The cuff was closed with O-Vicryl suture in a running locked fashion. All instruments were then removed. Good hemostasis was observed. Wade catheter was in place. The patient was then place supine and awakend and taken to the PACU in good condition. Postoperative condition: stable EBL: 25 cc Sponge, needle, and instrument counts were correct x two
[2024-06-20] MEDS: sodium chloride 0.9% 1,000 ML 100 ML IV (11:07)
--- NOTE | 2024-06-20 11:32 | ANE.PACU2 ---
Inpatient post-anesthesia follow up: Airway intact: Yes Vital signs: Temperature 98.4 F Pulse Rate 51 Respiratory Rate 16 Blood Pressure 113/68 Pulse Oximetry 100 Oxygen Delivery Me thod Room Air Oxygen Flow Rate Fraction of Inspir ed Oxygen Hydration adequate: Yes Nausea and vomiting: No Pain level: 3 Mental status: Baseline
[2024-06-20] MEDS: docusate sodium 100 mg Capsule PO (21:10)
[2024-06-21] MEDS: ketorolac 30 mg/mL INJ IVP (03:54)
[2024-06-21 06:00] VITALS: BP 103/67; PULSE 59; RESP 16; TEMP 36.7
[2024-06-21 06:02] LABS: Hematocrit 34.1 % (36-47); Mean Corpuscular HGB Conc 33.7 g/dL (30-55); Mean Corpuscular Hemoglobin 30.3 pg (27-33); Mean Corpuscular Volume 89.7 fl (85-98); Mean Platelet Volume 9.5 fL (7.4-10.4); Platelet Count 180 10^3/cmm (157-399); Red Cell Distribution Width 12.4 % (12.1-15.1)
[2024-06-21] MEDS: HYDROcodone-acetaminophen 5-325 mg Tablet PO (08:39)
[2024-06-21] MEDS: docusate sodium 100 mg Capsule PO (08:39)
--- NOTE | 2024-06-21 11:05 | P.PN_ITS ---
[address] [facility] Subjective 2 Subjective: Interval history: no c/o no abdominal pain eating, voiding, ambulating well no bleeding / discharge Vitals/I&O/Wt Last Vital Signs Temp 98.5 F 06/21/24 11:30 Pulse 57 L 06/21/24 11:30 Resp 18 06/21/24 11:30 BP 107/61 06/21/24 11:30 Pulse Ox 99 06/21/24 11:30 O2 Del Method Room Air 06/21/24 06:00 Weight last 48 hrs Weight 185 lb Physical Exam 2 Narrative: Comfortable, in no distress Awake, alert Afebrile, VS normal Lungs: clear Cor: RRR Abd: soft, nondistended, nontender Ext: normal Urinary Catheter Management: Wade: Cath Placed During This Visit: yes, but has since been removed by the nurse Reason for Continuing Indwelling Catheter: Decision to DC Catheter Urinary Catheter Date of Insertion: 06/20/24 Urinary Catheter Time of Insertion: 07:35 Date Urinary Catheter Removed: 06/21/24 Time Urinary Catheter Discontinued: 05:50 Data 06/21/24 05:55 A&P Assessment and plan (1) S/P hysterectomy: s/p total vaginal hysterectomy POD #1 Doing well Plan discharge to home Call / return if fever, chills, abdominal pain, bleeding f/u in one week Attestations 2 Medical Necessity Statement*: patient s/p vaginal hysterectomy, plan to discharge to home today Coding Level of Care Code Acute Code for Chg Fwd Diagnoses S/P hysterectomy Z90.710 Time Spent (min) 20
[2024-06-21 11:30] VITALS: BP 107/61; PULSE 57; RESP 18; TEMP 36.9; O2SAT 99
--- NOTE | 2024-06-21 12:05 | P.DS_ITS ---
Discharge Providers KETTLE COORDINATOR Date of Admission: 06/20/24 10:12 Date of Discharge: 06/21/24 Attending Provider at Admission: Erick Mata MD Attending Provider at Discharge: Erick Mata MD Consults: none Primary KETTLE COORDINATOR: Erick Mata MD Primary Care Provider: Paulino Gasca MD Diagnoses at Discharge Discharge Diagnosis (1) S/P hysterectomy: Details from hospital stay: 28 y.o. h/o endometrial ablation continued to have heavy menstrual bleeding admitted for hysterectomy total vaginal hysterectomy was done without any complications patient did well postoperatively and was discharged to home on the first postoperative day Status: Acute Reason for Visit Reason for Visit: N93.9 Brief History: 28 y.o. h/o endometrial ablation continued to have heavy menstrual bleeding admitted for hysterectomy Hospital Course Hospital Course 28 y.o. h/o endometrial ablation continued to have heavy menstrual bleeding admitted for hysterectomy total vaginal hysterectomy was done without any complications patient did well postoperatively and was discharged to home on the first postoperative day Physical Exam Narrative: Comfortable, in no distress Awake, alert Afebrile, VS normal Lungs: clear Cor: RRR Abd: soft, nondistended, nontender Ext: normal Urinary Catheter Management: Wade: Cath Placed During This Visit: yes, but has since been removed by the nurse Reason for Continuing Indwelling Catheter: Decision to DC Catheter Urinary Catheter Date of Insertion: 06/20/24 Urinary Catheter Time of Insertion: 07:35 Date Urinary Catheter Removed: 06/21/24 Time Urinary Catheter Discontinued: 05:50 History History History 5 Term 3 0 Miscarriages/Ectopic 1 Living Children 3 Discharge Data Studies Completed and Pending Pending at discharge Category Date Time Status Pathology: Surgical [PTH] Routine Pth 06/20/24 09:22 Received Laboratory Results WBC 13.50 10^3/uL (3.29-11.43) H 06/21/24 05:55 RBC 3.80 10^6/uL (3.85-5.65) L 06/21/24 05:55 Hgb 11.50 g/dL (11.27-16.99) 06/21/24 05:55 Hct 34.1 % (36-47) L 06/21/24 05:55 MCV 89.7 fl (85-98) 06/21/24 05:55 MCH 30.3 pg (27-33) 06/21/24 05:55 MCHC 33.7 g/dL (30-55) 06/21/24 05:55 RDW 12.4 % (12.1-15.1) 06/21/24 05:55 Plt Count 180 10^3/cmm (157-399) 06/21/24 05:55 MPV 9.5 fL (7.4-10.4) 06/21/24 05:55 Urine HCG, Qual Negative (Negative) 06/20/24 06:59 Blood Type O Positive 06/20/24 06:50 Rho(D) Type Rh positive 06/20/24 06:50 Antibody Screen Negative 06/20/24 06:50 Procedures Performed total vaginal hysterectomy Vitals Last Vital Signs Temp 98.5 F 06/21/24 11:30 Pulse 57 L 06/21/24 11:30 Resp 18 06/21/24 11:30 BP 107/61 06/21/24 11:30 Pulse Ox 99 06/21/24 11:30 O2 Del Method Room Air 06/21/24 06:00 Results Labs OB ([facility]): Blood Type O Positive 06/20/24 Antibody Screen Negative 06/20/24 Hct 34.1 % (36-47) L 06/21/24 Hgb 11.50 g/dL (11.27-16.99) 06/21/24 Rho(D) Type Rh positive 06/20/24 Plt Count 180 10^3/cmm (157-399) 06/21/24 TSH 0.95 uIU/mL (0.27-4.20) 03/28/23 Free T4 1.19 ng/dL (0.82-1.77) 03/28/23 Progesterone 0.281 ng/mL 03/28/23 FSH 6.9 mIU/mL 03/28/23 Discharge Plan Discharge Patient Disposition: Home Condition: Stable Prescriptions: New oxycodone-acetaminophen [Percocet] 5-325 mg tablet 1 tab PO Q8H PRN (Reason: pain) Qty: 30 0RF No Action No Known Home Medications Discharge Orders: Discharge Order (Routine); Ordered 06/21/24 Ordered By: Erick Mata Discharge Diet: Usual diet Discharge Activity: Increase activity as tolerated Patient Instructions: Oxycodone/Acetaminophen (By mouth), Acute Wound Care (DC), Opioid Safety (DC), Vaginal Hysterectomy (DC), OB Discharge Report, OB Laproscopic Surgery - [facility], OB Food/Drug Interaction Guide, Opioid Safety, Post Anesthesia Care Discharge Attestations KETTLE COORDINATOR Time Spent in Discharge Care*: less than 30 min Coding Level of Care Code Acute Code for Chg Fwd Diagnoses S/P hysterectomy Z90.710 Time Spent (min) 20
== END 2024-06-21 11:55 | disposition home or self-care (01) ==
LOC: OBGYN 10:14
PROVIDERS: Admitting Provider Obstetrics & Gynecology; PCP Family Medicine; Visit Provider Obstetrics & Gynecology
PROC: (CPT 58260; principal; 2024-06-20 07:00)
DX: N87.0 Mild cervical dysplasia (principal); N92.0 Excessive and frequent menstruation with regular cycle
CPT/HCPCS: 58260; 36415; 81025; 85027; 86850; 86900; 88307; 96376; G0378; J0690; J1885; J2250; J2704; J2710; J3010; J3490; J7030; P9045

== ENCOUNTER 2024-07-21 19:48 | Emergency (ER) | payer OTHER, BC, MEDICAID, SELFPAY ==
[2024-07-21] VITALS (9 sets, daily range): BP systolic 109–131; BP diastolic 51–84; PULSE 62–96; RESP 16–17; TEMP 36.6; O2SAT 96–100; BMI 27.3
[2024-07-21 20:41] LABS: Basophils # 0.1 10^3/uL (0.0-0.1); Basophils % 0.5 %; Eosinophils # 0.1 10^3/uL (0.0-0.8); Eosinophils % 0.9 %; Hematocrit 39.6 % (36-47); Lymphocytes # 2.9 10^3/uL (0.8-4.8); Lymphocytes % 22.8 %; Mean Corpuscular HGB Conc 33.3 g/dL (30-55); Mean Corpuscular Hemoglobin 29.7 pg (27-33); Mean Corpuscular Volume 89.2 fl (85-98); Mean Platelet Volume 9.2 fL (7.4-10.4); Monocytes # 0.7 10^3/uL (0.2-0.9); Monocytes % 5.4 %; Neutrophils # 9.01 10^3/uL (1.8-7.7); Nucleated Red Blood Cells % 0 %; Platelet Count 276 10^3/cmm (157-399); Red Blood Count 4.44 10^6/uL (3.85-5.65); Red Cell Distribution Width 12.2 % (12.1-15.1); White Blood Count 12.86 10^3/uL (3.29-11.43)
[2024-07-21 20:51] LABS: INR 0.96 (0.8-1.2)
[2024-07-21 20:52] LABS: Partial Thromboplastin Time 25.6 SECONDS (23.9-36.7)
[2024-07-21 20:58] LABS: Alanine Aminotransferase 18 U/L (0-33); Albumin Level 4.4 g/dL (3.5-5.2); Alkaline Phosphatase 52 U/L (35-105); Anion Gap 14.4 (5-19); Aspartate Amino Transferase 14 U/L (0-32); Blood Urea Nitrogen 9 mg/dL (6-20); Calcium 9.5 mg/dL (8.5-10.5); Carbon Dioxide 24 mmol/L (22-29); Chloride 105 mmol/L (98-107); Creatinine Clr Calc Pharmacy 115.2498; Globulin 2.5 g/dL (1.3-4.6); Glomerular Filtration Rate 84.2 mL/min (90-130); Glucose 84 mg/dL (65-115); Osmolality Calculated 288 mOsm/kg (285-295); Potassium 3.4 mmol/L (3.5-5.1); Sodium 140 mmol/L (136-145); Total Bilirubin 0.7 mg/dL (0.15-1.2); Total Protein 6.9 g/dL (6.6-8.7)
[2024-07-21] MEDS: sodium chloride 0.9% 1,000 ML 999 ML IV (21:11)
[2024-07-21] MEDS: ondansetron 2 mg/ML SDV 2 mL 4 MG IVP ×2 (21:27→23:55)
--- NOTE | 2024-07-21 21:27 | W.ED.FEMALGU ---
HPI - Female Genitourinary General: Chief complaint: Vaginal Bleeding Stated complaint: vag bleeding weak Time Seen by Provider: 07/21/24 20:22 History of Present Illness: 28-year-old female who had a vaginal hysterectomy 5 weeks ago. She had intercourse earlier in the evening, and began to bleed. Bleeding was evidently quite brisk at home. She felt faint, had a near syncopal episode. She is having considerable pain in the pelvic region. No fever. She believes she has continued to bleed. No vomiting. Related Data Previous Rx's ?Medication ?Instructions ?Recorded ketorolac 10 mg tablet 10 mg PO TID PRN pain #10 tabs 07/22/24 oxycodone-acetaminophen 5 mg-325 1 tab PO Q8H PRN pain #8 tabs 07/22/24 mg tablet (Percocet) Allergies Allergy/AdvReac Type Severity Reaction Status Date / Time bupropion (From Wellbutrin) Allergy Intermediate ALGY-Rash Verified 06/27/24 08:49 erythromycin base Allergy Intermediate ALGY-Rash Verified 06/27/24 08:49 iodine Allergy Mild ALGY-Rash Verified 06/27/24 08:49 PFSH ED PFSH: Medical History Recent childbirth 3 natural births Surgical History History of cholecystectomy Family History Grandmother Breast cancer Paternal grandmother Ovarian cancer Paternal grandmother Mother Diabetes Hypertension Family history of thyroid problem Grandfather Heart disease Paternal grandfather Maternal grandfather Other Parkinson disease Social History Smoking and tobacco/nicotine status: never used tobacco/nicotine Alcohol intake: current Alcohol intake frequency: holidays/special occasions only Substance/Drug Use: never Female Reproductive History: Para: 4 Spontaneous abortions: No Physical Exam Const: COMMON NORMALS: no acute distress GENERAL APPEARANCE: cooperative; not ill appearing and not frail appearing HENMT: COMMON NORMALS: normocephalic, atraumatic and Normal external nose present HEAD & SCALP: normocephalic and atraumatic FACE & SINUS: normal facial exam and face symmetric NOSE: Normal external nose present Eye: COMMON NORMALS: Equal, round and reactive pupils present and EOMs intact bilaterally PUPIL: Yes Equal, round and reactive pupils present Neck/C-Spine: GENERAL: Yes trachea midline Chest: CHEST: Yes Symmetrical chest wall rise Resp: COMMON NORMALS: normal respiratory effort, No retractions, No use of accessory muscles and clear to auscultation bilaterally AUSCULTATION: clear to auscultation bilaterally Cardio: COMMON NORMALS: regular rate and regular rhythm RATE: regular rate RHYTHM: regular rhythm GI: COMMON NORMALS: Normal to inspection, nondistended, normoactive bowel sounds present Extremity: COMMON NORMALS: no pedal edema Neuro: PARDEEP COMA SCALE: document GCS findings Pardeep coma scale eye opening: Spontaneous Pardeep coma scale verbal response: Orientated Pardeep coma scale motor response: Obey commands Pardeep coma scale total score: 15 SENSORY EXAM: Yes extremities (intact) Psych: COMMON NORMALS: speech normal SPEECH: Yes normal speech Skin: COMMON NORMALS: no rashes or lesions noted GENERAL SKIN EXAM: no rashes or lesions noted Course Vital Signs: Vital signs: Vital Signs Temperature 97.9 F 07/21/24 19:54 Pulse Rate 87 07/22/24 00:13 Respiratory Rate 16 07/22/24 00:13 Blood Pressure 132/82 07/22/24 00:23 Pulse Oximetry 96 07/22/24 00:13 Oxygen Delivery Me thod Room Air 07/21/24 23:30 [facility] - Female Medical Decision Making Hemoglobin is 13. She is normotensive here. Potassium is 3.4. Other laboratory is not remarkable. Pelvic exam reveals blood in the vault. There does appear to be a small opening in the vaginal vault. Blood is cleared with swabs. Active bleeding is nearly halted with pressure. She says that she has continued to bleed some after her exam. Ultrasound is pending. Ultrasound shows no free pelvic fluid. No fluid collection around the incision. Bleeding is slowed significantly. She still having pain. Spoke with gynecology. Recommendations are pelvic rest, monitor bleeding, heal by secondary intention, monitor for fever, etc. She will call tomorrow for follow-up appointment. Lab Data 07/21/24 20:20 07/21/24 20:20 Radiology Impressions Pelvic/Transvag US 07/21/24 22:10 IMPRESSION: 1. No identified acute pathology within the pelvis. 2. Status post hysterectomy. No free fluid. Laboratory Results WBC 12.86 10^3/uL (3.29-11.43) H 07/21/24 20:20 RBC 4.44 10^6/uL (3.85-5.65) 07/21/24 20:20 Hgb 13.20 g/dL (11.27-16.99) 07/21/24 20:20 Hct 39.6 % (36-47) 07/21/24 20:20 MCV 89.2 fl (85-98) 07/21/24 20:20 MCH 29.7 pg (27-33) 07/21/24 20:20 MCHC 33.3 g/dL (30-55) 07/21/24 20:20 RDW 12.2 % (12.1-15.1) 07/21/24 20:20 Plt Count 276 10^3/cmm (157-399) 07/21/24 20:20 MPV 9.2 fL (7.4-10.4) 07/21/24 20:20 Neut % (Auto) 70.0 % 07/21/24 20:20 Lymph % (Auto) 22.8 % 07/21/24 20:20 Dup[place] % (Auto) 5.4 % 07/21/24 20:20 Eos % (Auto) 0.9 % 07/21/24 20:20 Baso % (Auto) 0.5 % 07/21/24 20:20 Neut # (Auto) 9.01 10^3/uL (1.8-7.7) H 07/21/24 20:20 Lymph # (Auto) 2.9 10^3/uL (0.8-4.8) 07/21/24 20:20 Dupage # (Auto) 0.7 10^3/uL (0.2-0.9) 07/21/24 20:20 Eos # (Auto) 0.1 10^3/uL (0.0-0.8) 07/21/24 20:20 Baso # (Auto) 0.1 10^3/uL (0.0-0.1) 07/21/24 20:20 Nucleated RBC % (auto) 0 % 07/21/24 20:20 Nucleated RBCs # 0.0 /100WBC 07/21/24 20:20 PT 13.50 SECONDS (12.1-14.9) 07/21/24 20:20 INR 0.96 (0.8-1.2) 07/21/24 20:20 APTT 25.6 SECONDS (23.9-36.7) 07/21/24 20:20 Sodium 140 mmol/L (136-145) 07/21/24 20:20 Potassium 3.4 mmol/L (3.5-5.1) L 07/21/24 20:20 Chloride 105 mmol/L (98-107) 07/21/24 20:20 Carbon Dioxide 24 mmol/L (22-29) 07/21/24 20:20 Anion Gap 14.4 (5-19) 07/21/24 20:20 BUN 9 mg/dL (6-20) 07/21/24 20:20 Creatinine 0.8 mg/dL (0.5-0.9) 07/21/24 20:20 GFR Calculation 84.2 mL/min (90-130) L 07/21/24 20:20 Glucose 84 mg/dL (65-115) 07/21/24 20:20 Calculated Osmolality 288 mOsm/kg (285-295) 07/21/24 20:20 Calcium 9.5 mg/dL (8.5-10.5) 07/21/24 20:20 Total Bilirubin 0.7 mg/dL (0.15-1.2) 07/21/24 20:20 AST 14 U/L (0-32) 07/21/24 20:20 ALT 18 U/L (0-33) 07/21/24 20:20 Alkaline Phosphatase 52 U/L (35-105) 07/21/24 20:20 Total Protein 6.9 g/dL (6.6-8.7) 07/21/24 20:20 Albumin 4.4 g/dL (3.5-5.2) 07/21/24 20:20 Globulin 2.5 g/dL (1.3-4.6) 07/21/24 20:20 Urine Color Yellow (Yellow) 07/21/24 23:15 Urine Appearance Clear (CLEAR) 07/21/24 23:15 Urine pH 6.0 (5-7) 07/21/24 23:15 Ur Specific Malo 1.011 (1.005-1.030) 07/21/24 23:15 Urine Protein Negative (Negative) 07/21/24 23:15 Urine Glucose (UA) Negative (Normal) 07/21/24 23:15 Urine Ketones Trace (Negative) 07/21/24 23:15 Urine Blood 2+ (Negative) A 07/21/24 23:15 Urine Nitrate Positive (Negative) A 07/21/24 23:15 Urine Bilirubin Negative (Negative) 07/21/24 23:15 Urine Urobilinogen 1.0 mg/dL (Negative) 07/21/24 23:15 Ur Leukocyte Esterase 3+ (Negative) A 07/21/24 23:15 Urine RBC 3-5 /hpf (0-2) 07/21/24 23:15 Urine WBC 21-50 /hpf (0-5) H 07/21/24 23:15 Ur Squamous Epith Cells 0-5 /hpf (0-5) 07/21/24 23:15 Amorphous Sediment Not Reportable 07/21/24 23:15 Urine Bacteria 4+ /hpf (NONE) H 07/21/24 23:15 Hyaline Casts 0.40 /lpf 07/21/24 23:15 Blood Type O Positive 07/21/24 20:20 Rho(D) Type Rh positive 07/21/24 20:20 Antibody Screen Negative 07/21/24 20:20 All radiology interpretation(s) finalized by discharge Discharge Plan Discharge Patient Disposition: Home Clinical Impression: Vaginal bleeding, Dehiscence of vaginal cuff Condition: Stable Prescriptions: New ketorolac 10 mg tablet 10 mg PO TID PRN (Reason: pain) Qty: 10 0RF Continued oxycodone-acetaminophen [Percocet] 5-325 mg tablet 1 tab PO Q8H PRN (Reason: pain) Qty: 8 0RF Discharge Orders: Discharge ED (Routine); Ordered 07/22/24 Ordered By: Edi Story Referrals: Erick Mata MD [Physician] - 1-3 days Paulino Gasca MD [Primary Care Provider] - Patient Instructions: Opioid Safety, Pain Management, Vaginal Laceration Activity Restrictions/Additional Instructions: Pelvic rest until cleared by your doctor. Do not lift anything greater than 10 pounds until cleared by your doctor. Return for brisk vaginal bleeding, soaking 1 pad per hour for more than 3 hours, fever greater than 100, worsening pain despite treatment, any other discharge, other concerns. Call your doctor tomorrow for a follow-up appointment. Stand Alone Forms: Work/School Release Print Language: Sinhala Coding Level of Care Code ED Cabinetmaker Supervisor for Taylor Gupta
[2024-07-21] MEDS: fentaNYL 50 mcg/mL INJ 2mL 75 MCG IVP (21:29)
--- NOTE | 2024-07-21 22:10 | USR_ITS ---
PROCEDURE INFORMATION: Exam: US Pelvis, Complete, Non-Obstetric Exam date and time: 07/21/2024 11:15 PM Age: 28 years old Clinical indication: Other: Bleeding; Prior surgery; Surgery date: 1-6 months; Surgery type: Hysterectomy 5 weeks ago; Additional info: Vaginal bleeding. Hyst. 5w ago TECHNIQUE: Imaging protocol: Transabdominal pelvic nonobstetric ultrasound. Complete exam. Real time ultrasound with image documentation. COMPARISON: US pelvic complete* [id number] 02/02/2018 2:16 PM FINDINGS: Uterus: Uterus surgically absent. Right ovary/adnexa: Normal blood flow. Measures 2.5 x 2.4 x 2.6 cm. Right ovarian simple cyst measuring 1.0 x 0.5 x 1.0 cm. Left ovary/adnexa: Nonvisualization of the left ovary. Intraperitoneal space: No intraperitoneal fluid. Urinary bladder: Normal. US/US pelv w/transvag [id number] IMPRESSION: 1. No identified acute pathology within the pelvis. 2. Status post hysterectomy. No free fluid.
[2024-07-21 23:26] LABS: Bilirubin Urine Negative (Negative); Blood Urine 2+ (Negative); Glucose Urine UA Negative (Normal); Ketones Urine Trace (Negative); Leukocyte Esterase Urine 3+ (Negative); Nitrate Urine Positive (Negative); Protein Urine Negative (Negative); Specific Gravity, Urine 1.011 (1.005-1.030); Urine Appearance Clear (CLEAR); Urine Color Yellow (Yellow)
[2024-07-21 23:31] LABS: Add Urine Microscopic? YES; Bacteria Urine 4+ /hpf; Squamous Epithelial Cell Urine 0-5 /hpf (0-5); WBC Urine 21-50 /hpf (0-5)
[2024-07-21 23:33] LABS: Add Urine Culture? Yes
[2024-07-21] MEDS: morphine 4 mg/mL SDV 1 mL IVP (23:56)
[2024-07-21] MEDS: ketorolac 30 mg/mL INJ IVP (23:59)
[2024-07-22] VITALS: BP 116/72; O2SAT 95
[2024-07-22 00:13] VITALS: BP 102/64; PULSE 87; RESP 16; O2SAT 96
[2024-07-22 00:23] VITALS: BP 132/82
== END 2024-07-22 00:23 | disposition home or self-care (01) ==
PROVIDERS: Emergency Provider Emergency Medicine; PCP Family Medicine
DX: T81.328A Disruption or dehiscence of closure of other specified internal operation (surgical) wound, initial encounter (principal); X58.XXXA Exposure to other specified factors, initial encounter; N93.9 Abnormal uterine and vaginal bleeding, unspecified
CPT/HCPCS: 36415; 76830; 76856; 80053; 81001; 85025; 85610; 85730; 86850; 86900; 87086; 96361; 96374; 96375; 96376; 99285; J1885; J2270; J2405; J3010; J7030

== ENCOUNTER 2024-10-08 07:29 | Outpatient (CLI) | payer OTHER, BC, MEDICAID, SELFPAY ==
--- NOTE | 2024-10-08 07:45 | MR_ITS ---
WS: [id number] MRI THORACIC SPINE WITHOUT CONTRAST TECHNIQUE: Sagittal T1, T2 and STIR imaging. Axial T2 imaging. Noncontrast imaging obtained. CLINICAL INFORMATION: Syrinx of spinal cord COMPARISON: 2020 FINDINGS: Again seen is the nonenhancing syrinx within the thoracic cord unchanged in the prior examinations. Central syrinx extends from approximately T3-T11. Maximum dimension today measures approximately 2 mm stable from the prior studies. No evidence of syrinx progression. No high-grade central canal stenosis. No significant disc bulging. Mild facet arthropathy lower thoracic spine. No high-grade foraminal narrowing. Normal caliber thoracic aorta. Mild cerebellar tonsillar ectopia unchanged on hay rake operator imaging. MR/MR thoracic spin wo con* [id number] IMPRESSION: 1. Stable thoracic syrinx described above. 2. Mild thoracic curve and kyphosis. 3. No high-grade central canal stenosis. 4. No other acute findings.
--- NOTE | 2024-10-08 08:30 | MR_ITS ---
WS: [id number] MRI LUMBAR SPINE NONCONTRAST TECHNIQUE: Sagittal T1, T2 and STIR imaging. Axial T1 and T2 imaging. CLINICAL INFORMATION: syrinx of spinal cord COMPARISON: 2021 FINDINGS: Mild lumbar curve. No acute compression. Disc bulging throughout the lumbar spine with small annular fissures. Disc bulging L4-5 appears slightly progressed. Annular fissures at L2-3 and L3-4 are more prominent. Similar- appearing disc bulging L5-S1 with a small annular fissure. L1-L2: Normal. L2-L3: Mild annular bulging. Small annular fissure. Mild facet arthropathy. Spinal canal and foramen are patent. L3-L4: Mild annular bulging. Small annular fissure. Moderate facet arthropathy. Spinal canal and foramen are patent. L4-L5: Central disc protrusion. Narrowing subarticular recess bilaterally. Moderate facet arthropathy. Foramen are patent. L5-S1: Disc bulging with a small annular fissure. Moderate facet arthropathy. Spinal canal and foramen are patent. Visualized pelvic bony structures: Normal. Paravertebral soft tissues: Normal. MR/MR lumbar spine wo con* [id number] IMPRESSION: 1. Central disc protrusion L4-5 has progressed compared to previous with narro wing subarticular recess bilaterally. 2. Annular bulging with small annular fissures L2-3 and L3-4 appears slightly progressed. 3. Annular bulging L5-S1 with a small central protrusion and annular fissure i s similar in appearance. 4. Moderate facet arthropathy L2-L5
== END 2024-10-08 07:30 | disposition home or self-care (01) ==
PROVIDERS: PCP Family Medicine; Visit Provider Family Medicine
DX: G95.0 Syringomyelia and syringobulbia (principal); M48.062 Spinal stenosis, lumbar region with neurogenic claudication; M43.8X4 Other specified deforming dorsopathies, thoracic region; M40.294 Other kyphosis, thoracic region; M47.894 Other spondylosis, thoracic region; R93.89 Abnormal findings on diagnostic imaging of other specified body structures; M51.26 Other intervertebral disc displacement, lumbar region; M51.369 Other intervertebral disc degeneration, lumbar region without mention of lumbar back pain or lower extremity pain; M51.379 Other intervertebral disc degeneration, lumbosacral region without mention of lumbar back pain or lower extremity pain; M51.27 Other intervertebral disc displacement, lumbosacral region; M47.896 Other spondylosis, lumbar region; M43.8X6 Other specified deforming dorsopathies, lumbar region; M47.897 Other spondylosis, lumbosacral region
CPT/HCPCS: 72146; 72148

== ENCOUNTER → 2025-01-28 15:14 | Outpatient (BNVA) | payer OTHER, BC, MEDICAID, SELFPAY | PROVIDERS: PCP Family Medicine; Visit Provider Nurse Practitioner Family | DX: R30.0 Dysuria (principal) | CPT/HCPCS: 81003 ==

== ENCOUNTER → 2025-04-23 14:19 | Outpatient (BNVA) | payer OTHER, BC, MEDICAID, SELFPAY | PROVIDERS: PCP Family Medicine; Visit Provider Family Medicine | DX: R00.2 Palpitations (principal) | CPT/HCPCS: 80053; 82672; 83001; 83002; 84144; 84439; 84443 ==